=== PATIENT | female | born 1945 | race Caucasian/White ===

== ENCOUNTER 2016-08-03 16:27 | Inpatient (IN) | payer MEDICARE, OTHER ==
[2016-08-03] MEDS ORDERED: NS 1,000 ML IV ONE (16:37)
[2016-08-03] MEDS ORDERED: DILTIAZEM 25 MG/5 ML VIAL IV ONE (16:37)
[2016-08-03 17:01] LABS: AUTOMATED BASOPHIL 1.1 % (0-2); AUTOMATED EOSINOPHIL 1.6 % (0-5); AUTOMATED MONOCYTE 6.2 % (3-10); AUTOMATED NEUTROPHIL 60.1 % (45-76); MPV 8.2 fL (7.4-10.4)
[2016-08-03 17:13] LABS: BLOOD UREA NITROGEN 21 MG/DL (7-17); CALCIUM 9.7 MG/DL (8.4-10.2); CALCULATED OSMOLALITY 281 MOs/Kg (270-290); CHLORIDE 106 mEq/L (98-107); CPK TOTAL WITH POSSIBLE MB 68 IU/L (30-134); GLUCOSE 123 mg/dL (70-99); PARTIAL THROMB. TIME 24.3 SEC (22-35); SODIUM LEVEL 144 mEq/L (137-146); TOTAL PROTEIN 7.3 G/DL (6.3-8.2)
--- NOTE | 2016-08-03 17:28 | DIRPT ---
CLINICAL DATA: Chest pain, neck and jaw pain EXAM: CHEST 2 VIEW COMPARISON: 08/06/2015 FINDINGS: The heart size and mediastinal contours are within normal limits. Both lungs are clear. The visualized skeletal structures are unremarkable. IMPRESSION: No active cardiopulmonary disease. Electronically Signed By: Funmilayo Barron On: 08/03/2016 17:26
[2016-08-03 17:31] LABS: ABG Draw Site Left Radial; ABG Draw Tech SPEMA; ALLEN'S TEST PASS; BEb 5.4 (+/- 2); TCO2 30.2 MMOL/L (23-27)
--- NOTE | 2016-08-03 17:59 | EDPRACDOC ---
- History of Present Illness HPI: PT PRESENTS WITH SUBSTERNAL CHEST PAIN THAT BEGAN APPROX ONE HOUR [employer]. STATES THE PAIN IS A HEAVINESS AND RADIATES TO THE NECK. PT HAS PMH OF CARDIAC STENT PLACEMENT APPROX 10 YEARS AGO. DENIES NAUSEA OR VOMITING. Chest Pain Location: Reports: Substernal Pain Radiation: Reports: Neck, Jaw Symptoms Occur: Reports: Gradually Cardiac Risk Factors: Reports: Hyperlipidemia, Hypertension Cardiac History of: Reports: Cardiac Cath, Stress Test, Stent Medications within 24 Hours: Reports: Aspirin Prehospital Care: Reports: None Pain Came On: Reports: Gradually Pain Status: Present Now Pain Description: Reports: Pressure, Heavy, Tightness Pain Severity: Moderate Pain Worsens With: Reports: Nothing Pain Improves With: Reports: Nothing Associated Signs and Symptoms: Reports: None <Nakita Denis - Last Filed: 08/03/16 18:10> - General Information Information Source: Patient, Family Mode of Arrival: Car - History of Present Illness Onset: 1hr <Tu Nj - Last Filed: 08/03/16 19:39> - General Information Chief Complaint: Chest Pain Stated Complaint: CHEST PAIN Time Seen by Provider: 08/03/16 16:36 Home Medications: Home Medications Aspirin [Aspirin, Chewable] 81 mg PO DAILY 10/24/12 Atenolol [Tenormin] 25 mg PO DAILY 10/24/12 Calcium Carb/Vit D3/Minerals [Calcium 600 + D Tablet] 1 tab PO BID 10/24/12 Levothyroxine Sodium [Levoxyl] 137 mcg PO DAILY 10/24/12 Multivitamin [Multiple Vitamins] 1 tab PO DAILY 10/24/12 Niacin 500 mg PO BIDWM 10/24/12 Nitroglycerin [Nitrostat] 0.4 mg SL DAILY PRN 10/24/12 [place]-3 Fatty Acids/Fish Oil [Fish Oil 1,000 mg Softgel] 2 cap PO BID 10/24/12 Omeprazole 40 mg PO DAILY 10/24/12 Rosuvastatin Calcium [Crestor] 10 mg PO QHS 10/24/12 Sertraline HCl [Zoloft] 200 mg PO DAILY 10/24/12 Buspirone HCl 15 mg PO DAILY 03/11/16 Valsartan/Hydrochlorothiazide [Valsartan-Hctz 80-12.5 mg Tab] 1 tab PO DAILY Allergies/Adverse Reactions: Allergies Allergy/AdvReac Type Severity Reaction Status Date / Time No Known Allergies Allergy Verified 08/03/16 16:42 ED Past Medical History - History Reviewed Yes Nurses notes reviewed and agree except as marked <Nakita Denis - Last Filed: 08/03/16 18:10> - Patient Medical History Neurological History: Reports: Migraine Cardiac History: Reports: Coronary Artery Disease, Hypertension, Cardiac Catheterization (2 stents placed approximately 5 years ago in [place]), Hypercholesterolemia Respiratory History: Reports: Asthma GI/ History: Reports: Urinary Tract Infection Musculoskeletal History: Reports: Arthritis Psychological History: Reports: Depression, Anxiety. Denies: Substance Use Disorder Systemic History: Reports: Hypothyroidism Surgical History: Reports: Appendectomy, Cardiac Catheterization (2 stents placed approximately 5 years ago in [place]), Tonsillectomy/Adnoidectomy - Family Medical History Reports: Hypertension (daddy, brother), Diabetes (mother), Cancer (mother, brother), Cardiac Disorders (Father and Mother) - Social Medical History Smoking Status: Former smoker Social History: Denies: Other Substance Use <Tu Nj - Last Filed: 08/03/16 19:39> EDM Review of Systems - Review of Systems ROS Negative Except as Marked: Yes All systems reviewed and were negative except as marked <Nakita Denis - Last Filed: 08/03/16 18:10> - Physical Exam Constitutional: Alert Oriented to: Time, Person, Place Last recorded Vital Signs: Last Vital Signs Temp 98.2 F 08/03/16 16:36 Pulse 54 L 08/03/16 17:49 Resp 20 08/03/16 17:49 BP 148/74 08/03/16 17:49 Pulse Ox 94 08/03/16 17:49 Oxygen Pulse Oxygen Saturation 94 O2 Device Nasal Cannula Oxygen Flow Rate 2 Fraction of Inspired Oxygen ( FIO2) - HEENT Head: Normal ( normocephalic) Eye Exam: Normal (PERRL, EOMI, Sclera white) Oropharynx: Normal (Pharynx:Moist without exudate,Gums-no swelling) Nose: No Symptoms Reported (septum midline) Neck: Normal (FROM, trachea at midline) - Respiratory/Cardiovascular Respiratory: Normal - CTA (BBS clear to auscultation without adventitious sounds ) Cardiovascular: Tachycardia, Irregular - GI Auscultation: Normal (NABS) Palpation: Normal (Soft,No rebound or guarding, non distended) Tenderness: Non tender Portillo's Sign: Negative Rectal Exam: Deferred - Musculoskeletal Back: Normal (Non-Tender) Extremities: Normal (Normal tone, Pulses 2+ No cyanosis or edema, FROM) - Integumentary Skin: Normal, Warm, Dry Lymphatics: Normal (no adenopathy) - Neurologic Memory Impaired: Normal Motor Function: Normal (Normal tone, Pulses 2+ No cyanosis or edema, FROM) Cranial Nerve: Normal (CN II-X11 intact sensation, strength 5/5) Cerebellar: Normal Mood Description: Normal Perception: Normal <Nakita Denis - Last Filed: 08/03/16 18:10> - Physical Exam Last recorded Vital Signs: Last Vital Signs Temp 98.2 F 08/03/16 16:36 Pulse 54 L 08/03/16 17:49 Resp 20 08/03/16 17:49 BP 148/74 08/03/16 17:49 Pulse Ox 94 08/03/16 17:49 Oxygen Pulse Oxygen Saturation 94 O2 Device Nasal Cannula Oxygen Flow Rate 2 Fraction of Inspired Oxygen ( FIO2) <Tu Nj - Last Filed: 08/03/16 19:39> ED Chest Pain Exam - Respiratory/Cardiovascular Respiratory: Normal - CTA Cardiovascular/Chest: Tachycardia, Irregular Radial Pulse: Normal Femoral Pulse: Normal Pedal Pulse: Normal Carotid Arteries: Normal Edema: negative: 1+, 2+, 3+, 4+, 5, 6 Chest Palpation: Normal <Nakita Denis - Last Filed: 08/03/16 18:10> - Differential Diagnosis Angina, Other - Action Patient received Aspirin within last 24 hours?: Yes ASA given in the ED: No Patient received Beta Mary Jo within last 24hrs: No - Results All Results Reviewed and Normal except as Highlighted below: Yes 08/03/16 16:47 08/03/16 16:47 WBC 9.1 xk/uL (3.8-10.8) 08/03/16 16:47 RBC 4.75 xM/uL (4.20-5.40) 08/03/16 16:47 Hgb 13.0 g/dL (12.0-16.0) 08/03/16 16:47 Hct 38.9 % (36-47) 08/03/16 16:47 MCV 82 fL (81-99) 08/03/16 16:47 MCH 27.4 pg (27-32) 08/03/16 16:47 MCHC 33.5 g/dl (33-36) 08/03/16 16:47 RDW 14.6 % (11.5-14.5) H 08/03/16 16:47 Plt Count 174 xk/uL (130-400) 08/03/16 16:47 MPV 8.2 fL (7.4-10.4) 08/03/16 16:47 Neut % (Auto) 60.1 % (45-76) 08/03/16 16:47 Lymph % (Auto) 31.0 % (17-44) 08/03/16 16:47 [place] % (Auto) 6.2 % (3-10) 08/03/16 16:47 Eos % (Auto) 1.6 % (0-5) 08/03/16 16:47 Baso % (Auto) 1.1 % (0-2) 08/03/16 16:47 Absolute Neuts (auto) 5.46 xk/uL (1.7-8.2) 08/03/16 16:47 Absolute Lymphs (auto) 2.82 xk/uL (0.65-4.75) 08/03/16 16:47 PT 10.0 SEC (9.2-11.2) 08/03/16 16:47 INR 1.0 08/03/16 16:47 APTT 24.3 SEC (22-35) 08/03/16 16:47 Puncture Site Left radial 08/03/16 17:30 pH 7.490 pH UNITS (7.35-7.45) H 08/03/16 17:30 pCO2 38.0 mmHg (35-45) 08/03/16 17:30 pO2 54.0 mmHg (80-100) L 08/03/16 17:30 HCO3 29.0 MMOL/L (22-26) H 08/03/16 17:30 Total CO2 30.2 MMOL/L (23-27) H 08/03/16 17:30 Base Excess 5.4 (+/- 2) H 08/03/16 17:30 FiO2 % 21 08/03/16 17:30 Specimen Drawn By Spema 08/03/16 17:30 Sodium 144 mEq/L (137-146) 08/03/16 16:47 Potassium 3.5 mEq/L (3.5-5.1) 08/03/16 16:47 Chloride 106 mEq/L (98-107) 08/03/16 16:47 Carbon Dioxide 28 mMOL/L (22-33) 08/03/16 16:47 Anion Gap 14 mEq/L (8-16) 08/03/16 16:47 BUN 21 MG/DL (7-17) H 08/03/16 16:47 Creatinine 0.80 MG/DL (0.52-1.04) 08/03/16 16:47 Estimated GFR (MDRD) > 60 mL/min (>=60) 08/03/16 16:47 Glucose 123 mg/dL (70-99) H 08/03/16 16:47 Calculated Osmolality 281 MOs/Kg (270-290) 08/03/16 16:47 Calcium 9.7 MG/DL (8.4-10.2) 08/03/16 16:47 Total Bilirubin 0.3 MG/DL (0.2-1.3) 08/03/16 16:47 AST 25 IU/L (14-36) 08/03/16 16:47 ALT 28 IU/L (9-52) 08/03/16 16:47 Alkaline Phosphatase 59 IU/L (55-165) 08/03/16 16:47 Creatine Kinase 68 IU/L (30-134) 08/03/16 16:47 Troponin I < 0.01 ng/mL (<.04) 08/03/16 16:47 Czm-Y-Szrwnpirdgw Pept 2560 pg/mL (0-900) H 08/03/16 16:47 Total Protein 7.3 G/DL (6.3-8.2) 08/03/16 16:47 Albumin 4.2 G/DL (3.5-5.0) 08/03/16 16:47 Lab Results 08/03/16 08/03/16 08/03/16 17:30 16:47 16:47 WBC 9.1 RBC 4.75 Hgb 13.0 Hct 38.9 MCV 82 MCH 27.4 MCHC 33.5 RDW 14.6 H Plt Count 174 MPV 8.2 Neut % (Auto) 60.1 Lymph % (Auto) 31.0 [place] % (Auto) 6.2 Eos % (Auto) 1.6 Baso % (Auto) 1.1 Absolute Neuts (auto) 5.46 Absolute Lymphs (auto) 2.82 PT 10.0 INR 1.0 APTT 24.3 Puncture Site Left radial pH 7.490 H pCO2 38.0 pO2 54.0 L HCO3 29.0 H Total CO2 30.2 H Base Excess 5.4 H FiO2 % 21 Specimen Drawn By Spema Sodium Potassium Chloride Carbon Dioxide Anion Gap BUN Creatinine Estimated GFR (MDRD) Glucose Calculated Osmolality Calcium Total Bilirubin AST ALT Alkaline Phosphatase Creatine Kinase Troponin I Axp-A-Uetjrevvtqo Pept Total Protein Albumin 08/03/16 16:47 WBC RBC Hgb Hct MCV MCH MCHC RDW Plt Count MPV Neut % (Auto) Lymph % (Auto) [place] % (Auto) Eos % (Auto) Baso % (Auto) Absolute Neuts (auto) Absolute Lymphs (auto) PT INR APTT Puncture Site pH pCO2 pO2 HCO3 Total CO2 Base Excess FiO2 % Specimen Drawn By Sodium 144 Potassium 3.5 Chloride 106 Carbon Dioxide 28 Anion Gap 14 BUN 21 H Creatinine 0.80 Estimated GFR (MDRD) > 60 Glucose 123 H Calculated Osmolality 281 Calcium 9.7 Total Bilirubin 0.3 AST 25 ALT 28 Alkaline Phosphatase 59 Creatine Kinase 68 Troponin I < 0.01 Blo-C-Pyjqhygidij Pept 2560 H Total Protein 7.3 Albumin 4.2 Laboratory Results - last 24 hr 08/03/16 08/03/16 08/03/16 16:47 16:47 16:47 WBC 9.1 RBC 4.75 Hgb 13.0 Hct 38.9 MCV 82 MCH 27.4 MCHC 33.5 RDW 14.6 H Plt Count 174 MPV 8.2 Neut % (Auto) 60.1 Lymph % (Auto) 31.0 [place] % (Auto) 6.2 Eos % (Auto) 1.6 Baso % (Auto) 1.1 Absolute Neuts (auto) 5.46 Absolute Lymphs (auto) 2.82 PT 10.0 INR 1.0 APTT 24.3 Puncture Site pH pCO2 pO2 HCO3 Total CO2 Base Excess FiO2 % Specimen Drawn By Sodium 144 Potassium 3.5 Chloride 106 Carbon Dioxide 28 Anion Gap 14 BUN 21 H Creatinine 0.80 Estimated GFR (MDRD) > 60 Glucose 123 H Calculated Osmolality 281 Calcium 9.7 Total Bilirubin 0.3 AST 25 ALT 28 Alkaline Phosphatase 59 Creatine Kinase 68 Troponin I < 0.01 Dur-N-Qmfmntfztum Pept 2560 H Total Protein 7.3 Albumin 4.2 08/03/16 17:30 WBC RBC Hgb Hct MCV MCH MCHC RDW Plt Count MPV Neut % (Auto) Lymph % (Auto) [place] % (Auto) Eos % (Auto) Baso % (Auto) Absolute Neuts (auto) Absolute Lymphs (auto) PT INR APTT Puncture Site Left radial pH 7.490 H pCO2 38.0 pO2 54.0 L HCO3 29.0 H Total CO2 30.2 H Base Excess 5.4 H FiO2 % 21 Specimen Drawn By Spema Sodium Potassium Chloride Carbon Dioxide Anion Gap BUN Creatinine Estimated GFR (MDRD) Glucose Calculated Osmolality Calcium Total Bilirubin AST ALT Alkaline Phosphatase Creatine Kinase Troponin I Uzm-H-Egapfktvaix Pept Total Protein Albumin Laboratory Results 08/03/16 16:47 08/03/16 16:47 - EKG EKG #1 EKG Time: 16:35 -: Yes EKG interpreted by me Rate: bpm: 118 [place]: Normal Rhythm: Afib (WITH RVR) Block: None Hypertrophy: None ST: Normal Comparison: 09/01/14 (NSR) EKG #2 EKG Time: 18:02 -: Yes EKG interpreted by me Rate: bpm: 51 [place]: Normal Rhythm: SB Block: None Hypertrophy: None ST: Nonsp Comments: AFTER CARDIAZEM <Nakita Denis W - Last Filed: 08/03/16 18:10> - Re-evaluation Re-evaluation 1 Re-evaluation Time: 17:57 i saw and examined the patient and confirmed details of the h/p.pt denies the presence of cp at this time. afib was present upon first eval, but now, HR is in the 50's and it appears to be sinus. no chest tenderness;no abd tenderness. pt has hx of cad with hx stents 8-10 years ago.after dx w/u, anticipate hospitalist c/s for admission. Re-evaluation 2 Re-evaluation Time: 19:34 pt denies pain, has funny feeling in her head and mild blurry vision - Results 08/03/16 16:47 08/03/16 16:47 WBC 9.1 xk/uL (3.8-10.8) 08/03/16 16:47 RBC 4.75 xM/uL (4.20-5.40) 08/03/16 16:47 Hgb 13.0 g/dL (12.0-16.0) 08/03/16 16:47 Hct 38.9 % (36-47) 08/03/16 16:47 MCV 82 fL (81-99) 08/03/16 16:47 MCH 27.4 pg (27-32) 08/03/16 16:47 MCHC 33.5 g/dl (33-36) 08/03/16 16:47 RDW 14.6 % (11.5-14.5) H 08/03/16 16:47 Plt Count 174 xk/uL (130-400) 08/03/16 16:47 MPV 8.2 fL (7.4-10.4) 08/03/16 16:47 Neut % (Auto) 60.1 % (45-76) 08/03/16 16:47 Lymph % (Auto) 31.0 % (17-44) 08/03/16 16:47 [place] % (Auto) 6.2 % (3-10) 08/03/16 16:47 Eos % (Auto) 1.6 % (0-5) 08/03/16 16:47 Baso % (Auto) 1.1 % (0-2) 08/03/16 16:47 Absolute Neuts (auto) 5.46 xk/uL (1.7-8.2) 08/03/16 16:47 Absolute Lymphs (auto) 2.82 xk/uL (0.65-4.75) 08/03/16 16:47 PT 10.0 SEC (9.2-11.2) 08/03/16 16:47 INR 1.0 08/03/16 16:47 APTT 24.3 SEC (22-35) 08/03/16 16:47 Puncture Site Left radial 08/03/16 17:30 pH 7.490 pH UNITS (7.35-7.45) H 08/03/16 17:30 pCO2 38.0 mmHg (35-45) 08/03/16 17:30 pO2 54.0 mmHg (80-100) L 08/03/16 17:30 HCO3 29.0 MMOL/L (22-26) H 08/03/16 17:30 Total CO2 30.2 MMOL/L (23-27) H 08/03/16 17:30 Base Excess 5.4 (+/- 2) H 08/03/16 17:30 FiO2 % 21 08/03/16 17:30 Specimen Drawn By Spema 08/03/16 17:30 Sodium 144 mEq/L (137-146) 08/03/16 16:47 Potassium 3.5 mEq/L (3.5-5.1) 08/03/16 16:47 Chloride 106 mEq/L (98-107) 08/03/16 16:47 Carbon Dioxide 28 mMOL/L (22-33) 08/03/16 16:47 Anion Gap 14 mEq/L (8-16) 08/03/16 16:47 BUN 21 MG/DL (7-17) H 08/03/16 16:47 Creatinine 0.80 MG/DL (0.52-1.04) 08/03/16 16:47 Estimated GFR (MDRD) > 60 mL/min (>=60) 08/03/16 16:47 Glucose 123 mg/dL (70-99) H 08/03/16 16:47 Calculated Osmolality 281 MOs/Kg (270-290) 08/03/16 16:47 Calcium 9.7 MG/DL (8.4-10.2) 08/03/16 16:47 Total Bilirubin 0.3 MG/DL (0.2-1.3) 08/03/16 16:47 AST 25 IU/L (14-36) 08/03/16 16:47 ALT 28 IU/L (9-52) 08/03/16 16:47 Alkaline Phosphatase 59 IU/L (55-165) 08/03/16 16:47 Creatine Kinase 68 IU/L (30-134) 08/03/16 16:47 Troponin I < 0.01 ng/mL (<.04) 08/03/16 16:47 Yhu-Y-Lnywshixohs Pept 2560 pg/mL (0-900) H 08/03/16 16:47 Total Protein 7.3 G/DL (6.3-8.2) 08/03/16 16:47 Albumin 4.2 G/DL (3.5-5.0) 08/03/16 16:47 Lab Results 08/03/16 08/03/16 08/03/16 17:30 16:47 16:47 WBC 9.1 RBC 4.75 Hgb 13.0 Hct 38.9 MCV 82 MCH 27.4 MCHC 33.5 RDW 14.6 H Plt Count 174 MPV 8.2 Neut % (Auto) 60.1 Lymph % (Auto) 31.0 [place] % (Auto) 6.2 Eos % (Auto) 1.6 Baso % (Auto) 1.1 Absolute Neuts (auto) 5.46 Absolute Lymphs (auto) 2.82 PT 10.0 INR 1.0 APTT 24.3 Puncture Site Left radial pH 7.490 H pCO2 38.0 pO2 54.0 L HCO3 29.0 H Total CO2 30.2 H Base Excess 5.4 H FiO2 % 21 Specimen Drawn By Spema Sodium Potassium Chloride Carbon Dioxide Anion Gap BUN Creatinine Estimated GFR (MDRD) Glucose Calculated Osmolality Calcium Total Bilirubin AST ALT Alkaline Phosphatase Creatine Kinase Troponin I Zoa-T-Kmmdkctiteb Pept Total Protein Albumin 08/03/16 16:47 WBC RBC Hgb Hct MCV MCH MCHC RDW Plt Count MPV Neut % (Auto) Lymph % (Auto) [place] % (Auto) Eos % (Auto) Baso % (Auto) Absolute Neuts (auto) Absolute Lymphs (auto) PT INR APTT Puncture Site pH pCO2 pO2 HCO3 Total CO2 Base Excess FiO2 % Specimen Drawn By Sodium 144 Potassium 3.5 Chloride 106 Carbon Dioxide 28 Anion Gap 14 BUN 21 H Creatinine 0.80 Estimated GFR (MDRD) > 60 Glucose 123 H Calculated Osmolality 281 Calcium 9.7 Total Bilirubin 0.3 AST 25 ALT 28 Alkaline Phosphatase 59 Creatine Kinase 68 Troponin I < 0.01 Xmc-E-Qlcjafqmprp Pept 2560 H Total Protein 7.3 Albumin 4.2 Laboratory Results - last 24 hr 08/03/16 08/03/16 08/03/16 16:47 16:47 16:47 WBC 9.1 RBC 4.75 Hgb 13.0 Hct 38.9 MCV 82 MCH 27.4 MCHC 33.5 RDW 14.6 H Plt Count 174 MPV 8.2 Neut % (Auto) 60.1 Lymph % (Auto) 31.0 [place] % (Auto) 6.2 Eos % (Auto) 1.6 Baso % (Auto) 1.1 Absolute Neuts (auto) 5.46 Absolute Lymphs (auto) 2.82 PT 10.0 INR 1.0 APTT 24.3 Puncture Site pH pCO2 pO2 HCO3 Total CO2 Base Excess FiO2 % Specimen Drawn By Sodium 144 Potassium 3.5 Chloride 106 Carbon Dioxide 28 Anion Gap 14 BUN 21 H Creatinine 0.80 Estimated GFR (MDRD) > 60 Glucose 123 H Calculated Osmolality 281 Calcium 9.7 Total Bilirubin 0.3 AST 25 ALT 28 Alkaline Phosphatase 59 Creatine Kinase 68 Troponin I < 0.01 Skp-N-Bdkcljzrbrf Pept 2560 H Total Protein 7.3 Albumin 4.2 08/03/16 17:30 WBC RBC Hgb Hct MCV MCH MCHC RDW Plt Count MPV Neut % (Auto) Lymph % (Auto) [place] % (Auto) Eos % (Auto) Baso % (Auto) Absolute Neuts (auto) Absolute Lymphs (auto) PT INR APTT Puncture Site Left radial pH 7.490 H pCO2 38.0 pO2 54.0 L HCO3 29.0 H Total CO2 30.2 H Base Excess 5.4 H FiO2 % 21 Specimen Drawn By Spema Sodium Potassium Chloride Carbon Dioxide Anion Gap BUN Creatinine Estimated GFR (MDRD) Glucose Calculated Osmolality Calcium Total Bilirubin AST ALT Alkaline Phosphatase Creatine Kinase Troponin I Krn-V-Ierwvqzlwzc Pept Total Protein Albumin Laboratory Results 08/03/16 16:47 08/03/16 16:47 <Tu Nj - Last Filed: 08/03/16 19:39> - Departure Disposition: Admit IP To This Hospital Education/Counseling Given To: Patient Education/Counseling Given Regarding: Diagnosis, Treatment, Prognosis, Follow Up <Nakita Denis - Last Filed: 08/03/16 18:10> - Departure Yes I personally saw and evaluated the patient. Decision to Admit Time: 18:30 Decision to admit date: 08/03/16 Decision to admit: from ED - Physician Consulted Hospitalist Time Called: 19:36 Provider Called: Matt Melendez Consult Reason: to discuss pt and ask for c/s <Tu Nj - Last Filed: 08/03/16 19:39> - Departure Condition: Stable Final Diagnosis: New onset a-fib Instructions: A-fib (Atrial Fibrillation) (ED), Chest Pain (ED) Referrals: Deshaun Pino MD [Staff Physician] - One Week Prescriptions: No Action Omeprazole 40 mg PO DAILY Nitroglycerin [Nitrostat] 0.4 mg SL DAILY PRN PRN Reason: Chest Pain Or Discomfort Niacin 500 mg PO BIDWM Sertraline HCl [Zoloft] 200 mg PO DAILY [place]-3 Fatty Acids/Fish Oil [Fish Oil 1,000 mg Softgel] 2 cap PO BID Multivitamin [Multiple Vitamins] 1 tab PO DAILY Levothyroxine Sodium [Levoxyl] 137 mcg PO DAILY Rosuvastatin Calcium [Crestor] 10 mg PO QHS Calcium Carb/Vit D3/Minerals [Calcium 600 + D Tablet] 1 tab PO BID Atenolol [Tenormin] 25 mg PO DAILY Aspirin [Aspirin, Chewable] 81 mg PO DAILY Valsartan/Hydrochlorothiazide [Valsartan-Hctz 80-12.5 mg Tab] 1 tab PO DAILY Buspirone HCl 15 mg PO DAILY
[2016-08-03] MEDS ORDERED: Pharmacy Review for Metformin - IV Contrast Given SCH (18:00)
[2016-08-03 18:27] LABS: LEUKOCYTES/URINE 1+ (NEGATIVE); NITRITE/URINE NEG (NEGATIVE); RBC/URINE 0-2 (0-5); URINE OCCULT BLOOD NEG (NEG/TRACE)
--- NOTE | 2016-08-03 19:18 | DIRPT ---
CLINICAL DATA: 71-year-old female with hypoxia and chest pain and hypoxia. EXAM: CT ANGIOGRAPHY CHEST WITH CONTRAST TECHNIQUE: Multidetector CT imaging of the chest was performed using the standard protocol during bolus administration of intravenous contrast. Multiplanar CT image reconstructions and MIPs were obtained to evaluate the vascular anatomy. CONTRAST: 80 cc Isovue 370 COMPARISON: Chest radiograph dated 08/03/2016 FINDINGS: Evaluation of this exam is limited due to respiratory motion artifact. There is a 3.5 x 2.2 cm hypodense lesion in the posterior left hilum between the descending thoracic aorta and left lower lobe pulmonary artery which may represent an impacted mucus within the left upper lobe bronchus. An enlarged lymph node or hilar mass are not excluded. These lesion appears to cause mass effect and splaying of the small vessels adjacent to it. There is a small focal area of consolidative change in the superior segment of the left lower lobe superior to this lesion. There are bibasilar dependent atelectatic changes of the lungs. The lungs are otherwise clear. There is no pleural effusion or pneumothorax. The central airways are patent. There is atherosclerotic calcification of the thoracic aorta. There is no CT evidence of pulmonary embolism. Right hilar adenopathy measuring 1.5 cm in short axis. Right paratracheal lymph node measures 1.5 cm. There is a 1.2 cm nodule in the anterior mediastinum, likely a lymph node. The esophagus is grossly unremarkable. Mild cardiomegaly. Calcified mitral annulus as well as coronary vascular calcifications noted. There is a slightly dilated cord-like structure arising from the left atrial appendage which may be part of the left atrial anatomy or represent an aneurysmal vessel. Further evaluation with echocardiogram or gated cardiac CT is recommended. There is no axillary adenopathy. The chest wall soft tissues appear unremarkable. There is mild degenerative changes of the spine. No acute fracture. Cholecystectomy. Small scattered splenic calcified granuloma. The visualized upper abdomen is otherwise unremarkable. Review of the MIP images confirms the above findings. IMPRESSION: No CT evidence of pulmonary embolism. A 3.5 x 2.2 cm hypo attenuating lesion in the posterior aspect of the left hilum possibly representing an impacted mucus material with associated focal postobstructive atelectasis of the adjacent lung. An enlarged lymph node, or a hilar mass are not excluded. Bronchoscopy may provide better evaluation. Pulmonary consult is advised. Mild right hilar adenopathy as well as top-normal mediastinal lymph nodes. Cord like structure arising from the left atrial appendage. Further evaluation with echocardiogram or gated cardiac CT is recommended. Electronically Signed By: Reyes Tse M.D. On: 08/03/2016 19:16
--- NOTE | 2016-08-03 19:54 | HISTPHYS ---
- Chief Complaint chest pain, jaw/neck/head pain - History of Present Illness PRIMARY CARE PROVIDER: Dr. Rufino Metz LOW RAW SUGAR CUTTER: Dr. Pino HPI: The patient is a 71 yo woman with coronary artery disease, 2 stents placed approx 2007, hypertension, hyperlipidemia, family history of early heart disease , who presents with chest, neck, and head pain. She started having pain in her gums and mouth and head. The pain was all around the bottom of her jaw bilaterally. Then she had pain in her chest. Her blood pressure was nigh. Onset: 3:30 today. Duration: intermittent. Location: upper left chest. Radiation: bilateral neck. Character: Pressure. 12/03. Alleviated by: Nothing. Exacerbated by: Nothing. Associated Symptoms: Mild shortness of breath. No new diaphoresis but has it all the time. Palpitations and heart racing; heart rate was fast then slow. Had mild cough intermittently x 1 month; received an inhaler for it but it never really resolved. No wheezing. No fever or chills. Headache: entire head. No focal weakness or numbness. No abdominal pain or nausea. Treatments: none at home except usual medications. Was treated for a respiratory infection last month. She still reports coughing. In the emergency department, the patient was found to be tachycardic with a heart rate in the 130s an in atrial fibrillation. For the atrial fibrillation with rapid ventricular response, she was given diltiazem 20 mg IV x1. Shortly after that, she converted to sinus rhythm and developed mild bradycardia, with heart rate in the low 50s down to 49. - Medical History Cardiac History: Reports: Coronary Artery Disease (2 stents), Hypertension, Cardiac Catheterization (2 stents placed approximately 2007 in [place]), Hypercholesterolemia Respiratory History: Reports: Asthma (Mild intermittent. Does not wear oxygen at home. Denies sleep apnea.) GI/ History: Reports: Urinary Tract Infection Musculoskeletal History: Reports: Arthritis Systemic History: Reports: Hypothyroidism Psychological History: Reports: Depression, Anxiety. Denies: Substance Use Disorder - Surgical History Reports: Appendectomy, Cardiac Catheterization (2 stents placed approximately 5 years ago in [place]), Tonsillectomy/Adnoidectomy - Medictions/Allergies Allergies No Known Allergies Allergy (Verified 08/03/16 16:42) Current Medication List: Reviewed Home Medications Aspirin [Aspirin, Chewable] 81 mg PO DAILY 10/24/12 Atenolol [Tenormin] 25 mg PO DAILY 10/24/12 Calcium Carb/Vit D3/Minerals [Calcium 600 + D Tablet] 1 tab PO BID 10/24/12 Levothyroxine Sodium [Levoxyl] 137 mcg PO DAILY 10/24/12 Multivitamin [Multiple Vitamins] 1 tab PO DAILY 10/24/12 Niacin 500 mg PO BIDWM 10/24/12 Nitroglycerin [Nitrostat] 0.4 mg SL DAILY PRN 10/24/12 [place]-3 Fatty Acids/Fish Oil [Fish Oil 1,000 mg Softgel] 2 cap PO BID 10/24/12 Omeprazole 40 mg PO DAILY 10/24/12 Rosuvastatin Calcium [Crestor] 10 mg PO QHS 10/24/12 Sertraline HCl [Zoloft] 200 mg PO DAILY 10/24/12 Buspirone HCl 15 mg PO DAILY 03/11/16 Valsartan/Hydrochlorothiazide [Valsartan-Hctz 80-12.5 mg Tab] 1 tab PO DAILY - Family History Reports: Hypertension (Father, brother), Diabetes (Mother), Cancer (Mother, brother), Cardiac Disorders (Father: early [place] and at 55yo. Mother: heart disease.) - Social History Lives: with Spouse Smoking Status: Former smoker (Quit 30 or more years ago. Previously 1.5 to 2 ppd. Started 14yo.) Social History: Denies: Alcohol Use, Other Substance Use - Review of Systems GENERAL: No Fever, chills. Chronic diaphoresis. Positive for fatigue/malaise. HEENT: No ear pain or discharge. No nasal discharge or bleeding. No throat pain or swelling. No eye pain or eye redness. RESPIRATORY: Cough, shortness of breath. No wheezing. CARDIOVASCULAR: Chest pain and palpitations. GI: No abdominal pain, nausea, vomiting, diarrhea, constipation, or bloody stool. NEUROLOGICAL: Headache. No focal weakness. INTEGUMENT: no rashes, itching, or lesions. LYMPHATIC SYSTEM: no lymph node swelling or pain. MUSCULOSKELETAL: no new pain or joint swelling. GENITOURINARY: No dysuria or hematuria. ENDOCRINE: No polyuria or polydipsia. HEME: No chronic anemia, bleeding, or easy bruising. - Physical Exam Vital Signs: Initial Vitals Temperature 98.2 F 08/03/16 16:36 Pulse Rate 132 H 08/03/16 16:36 Respiratory Rate 18 08/03/16 16:36 Blood Pressure 118/86 08/03/16 16:36 Pulse Oxygen Saturation 93 08/03/16 16:36 Vital Signs - 24 hr 08/03/16 08/03/16 08/03/16 16:36 17:05 17:30 Temperature 98.2 F Pulse Rate 132 H 122 H 68 Respiratory 18 18 Rate Blood Pressure 118/86 122/86 120/70 Pulse Oxygen 93 91 Saturation 08/03/16 08/03/16 08/03/16 17:49 18:05 18:35 Temperature Pulse Rate 54 L 66 50 L Respiratory 20 18 18 Rate Blood Pressure 148/74 148/74 124/93 Pulse Oxygen 94 92 96 Saturation Weight: 86.1 kg Height: 5 feet 5 inches BMI: 31.6 - Other Exam Other Exam Findings: GENERAL: Ill-appearing, well nourished, in mild acute distress. HEENT: Normocephalic, atraumatic; pupils equal and round. Nares patent, without discharge or bleeding. No oropharyngeal lesions or erythema. Mucous membranes are dry. NECK: is supple, no masses, trachea midline. RESPIRATORY: Clear to auscultation bilaterally. Chest wall movements are symmetric. No use of accessory muscles to breathe. Occasional wheezing. No rales, rhonchi. Intermittent coughing noted. CARDIOVASCULAR: Normal S1, S2. Murmur 2/6 systolic. No rubs, or gallops. PMI non -displaced. Carotids: no carotid bruits. Bradycardia. DP pulses 2+ bilaterally. GI: soft, nontender, non-distended, normal active bowel sounds. No hepatosplenomegaly. INTEGUMENT: Clean, dry, and intact. No rashes. No lesions. MUSCULOSKELETAL: Moving all extremities. No cyanosis. No clubbing. Edema: Trace lower extremity edema bilaterally. NEUROLOGICAL: Cranial nerves 2-12 grossly intact. Motor 4/5 throughout. Reflexes : 2+ bilaterally. Babinski: toes downgoing bilaterally. Intact Finger to nose. Sensory grossly intact to light touch. Intact rapid alternating movements bilaterally. No pronator drift. PSYCHIATRIC: Fully oriented. Normal and appropriate affect. LYMPHATIC: No cervical lymphadenopathy. No supraclavicular lymphadenopathy. - Lab Results Laboratory Results - last 24 hr 08/03/16 08/03/16 08/03/16 16:47 16:47 16:47 WBC 9.1 RBC 4.75 Hgb 13.0 Hct 38.9 MCV 82 MCH 27.4 MCHC 33.5 RDW 14.6 H Plt Count 174 MPV 8.2 Neut % (Auto) 60.1 Lymph % (Auto) 31.0 [place] % (Auto) 6.2 Eos % (Auto) 1.6 Baso % (Auto) 1.1 Absolute Neuts (auto) 5.46 Absolute Lymphs (auto) 2.82 PT 10.0 INR 1.0 APTT 24.3 Puncture Site pH pCO2 pO2 HCO3 Total CO2 Base Excess FiO2 % Specimen Drawn By Sodium 144 Potassium 3.5 Chloride 106 Carbon Dioxide 28 Anion Gap 14 BUN 21 H Creatinine 0.80 Estimated GFR (MDRD) > 60 Glucose 123 H Calculated Osmolality 281 Calcium 9.7 Total Bilirubin 0.3 AST 25 ALT 28 Alkaline Phosphatase 59 Creatine Kinase 68 Troponin I < 0.01 Zot-J-Fatwmjumaux Pept 2560 H Total Protein 7.3 Albumin 4.2 Urine Color Urine Clarity Urine pH Ur Specific Arjay Urine Protein Urine Glucose (UA) Urine Ketones Urine Occult Blood Urine Nitrite Urine Bilirubin Urine Urobilinogen Ur Leukocyte Esterase Urine RBC Urine WBC Ur Epithelial Cells Hyaline Casts Urine Mucus 08/03/16 08/03/16 17:30 17:49 WBC RBC Hgb Hct MCV MCH MCHC RDW Plt Count MPV Neut % (Auto) Lymph % (Auto) [place] % (Auto) Eos % (Auto) Baso % (Auto) Absolute Neuts (auto) Absolute Lymphs (auto) PT INR APTT Puncture Site Left radial pH 7.490 H pCO2 38.0 pO2 54.0 L HCO3 29.0 H Total CO2 30.2 H Base Excess 5.4 H FiO2 % 21 Specimen Drawn By Spema Sodium Potassium Chloride Carbon Dioxide Anion Gap BUN Creatinine Estimated GFR (MDRD) Glucose Calculated Osmolality Calcium Total Bilirubin AST ALT Alkaline Phosphatase Creatine Kinase Troponin I Xkp-H-Nyyjmwveaab Pept Total Protein Albumin Urine Color Yellow Urine Clarity Clear Urine pH 6.0 Ur Specific Arjay 1.015 Urine Protein Neg Urine Glucose (UA) Neg Urine Ketones Neg Urine Occult Blood Neg Urine Nitrite Neg Urine Bilirubin Neg Urine Urobilinogen <2.0 Ur Leukocyte Esterase 1+ H Urine RBC 0-2 Urine WBC 2-5 Ur Epithelial Cells 2+ Hyaline Casts 0-2 Urine Mucus Occ - Diagnostic Findings EKG #1: 118 beats per minute. Atrial fibrillation with rapid ventricular response. ST and T-wave abnormality, consider lateral ischemia. T-wave inversions in leads 1, V5, and V6. Minimal ST depression in leads 2, 3, V4, and V5. Reviewed EKG personally. EKG #2: 51 beats per minute. Sinus bradycardia with sinus arrhythmia. Minimal voltage criteria for LVH. Nonspecific ST and T-wave abnormality. Minimal ST depression in leads 2, V2, V5, and V6. T-wave inversion in leads 3, AVF, V4, V5, and V6. Reviewed EKG personally. Chest x-ray, viewed personally: EXAM: CHEST 2 VIEW COMPARISON: 08/06/2015 FINDINGS: The heart size and mediastinal contours are within normal limits. Both lungs are clear. The visualized skeletal structures are unremarkable. IMPRESSION: No active cardiopulmonary disease. CTA chest: EXAM: CT ANGIOGRAPHY CHEST WITH CONTRAST TECHNIQUE: Multidetector CT imaging of the chest was performed using the standard protocol during bolus administration of intravenous contrast. Multiplanar CT image reconstructions and MIPs were obtained to evaluate the vascular anatomy. CONTRAST: 80 cc Isovue 370 COMPARISON: Chest radiograph dated 08/03/2016 FINDINGS: Evaluation of this exam is limited due to respiratory motion artifact. There is a 3.5 x 2.2 cm hypodense lesion in the posterior left hilum between the descending thoracic aorta and left lower lobe pulmonary artery which may represent an impacted mucus within the left upper lobe bronchus. An enlarged lymph node or hilar mass are not excluded. These lesion appears to cause mass effect and splaying of the small vessels adjacent to it. There is a small focal area of consolidative change in the superior segment of the left lower lobe superior to this lesion. There are bibasilar dependent atelectatic changes of the lungs. The lungs are otherwise clear. There is no pleural effusion or pneumothorax. The central airways are patent. There is atherosclerotic calcification of the thoracic aorta. There is no CT evidence of pulmonary embolism. Right hilar adenopathy measuring 1.5 cm in short axis. Right paratracheal lymph node measures 1.5 cm. There is a 1.2 cm nodule in the anterior mediastinum, likely a lymph node. The esophagus is grossly unremarkable. Mild cardiomegaly. Calcified mitral annulus as well as coronary vascular calcifications noted. There is a slightly dilated cord-like structure arising from the left atrial appendage which may be part of the left atrial anatomy or represent an aneurysmal vessel. Further evaluation with echocardiogram or gated cardiac CT is recommended. There is no axillary adenopathy. The chest wall soft tissues appear unremarkable. There is mild degenerative changes of the spine. No acute fracture. Cholecystectomy. Small scattered splenic calcified granuloma. The visualized upper abdomen is otherwise unremarkable. Review of the MIP images confirms the above findings. IMPRESSION: No CT evidence of pulmonary embolism. A 3.5 x 2.2 cm hypo attenuating lesion in the posterior aspect of the left hilum possibly representing an impacted mucus material with associated focal postobstructive atelectasis of the adjacent lung. An enlarged lymph node, or a hilar mass are not excluded. Bronchoscopy may provide better evaluation. Pulmonary consult is advised. Mild right hilar adenopathy as well as top-normal mediastinal lymph nodes. Cord like structure arising from the left atrial appendage. Further evaluation with echocardiogram or gated cardiac CT is recommended. - Assessment (1) Chest pain R07.9 - CHEST PAIN, UNSPECIFIED Acute Present on Admission: Yes Patient has known coronary artery disease with 2 stents placed several years ago. Rule out myocardial infarction. Plan: Obtain cardiac enzymes x 3. Place patient on telemetry. Give patient oxygen, aspirin. Give nitroglycerin, and morphine as needed for chest pain. Give statin. Stress test has been ordered for the morning. Patient has been advised, if the stress test is negative, to follow up with the primary care provider for evaluation of other potential causes of the chest pain. (2) New onset a-fib I48.91 - UNSPECIFIED ATRIAL FIBRILLATION Acute Present on Admission: Yes In emergency department, the patient had new onset atrial fibrillation with rapid ventricular response. She was given 1 dose of diltiazem in the emergency department and then converted to sinus bradycardia. Plan: Telemetry. Check electrolytes. 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 An enlarged lymph node, or a hilar mass are not excluded. Bronchoscopy may provide better evaluation. Pulmonary consult is advised. Mild right hilar adenopathy as well as top-normal mediastinal lymph nodes." Plan: Consult Dr. Brown, assistant spa manager, for further evaluation of the mass and lymphadenopathy. (4) Abnormal findings diagnostic imaging of heart and coronary circulation R93.1 - ABNORMAL FINDINGS ON DX IMAGING OF HEART AND COR CIRC Acute Present on Admission: Yes CT Chest findings: "Cord like structure arising from the left atrial appendage. Further evaluation with echocardiogram or gated cardiac CT is recommended." Plan: Consult special warfare combatant crewman for further evaluation of the left atrial abnormality. Echocardiogram ordered. (5) Bradycardia R00.1 - BRADYCARDIA, UNSPECIFIED Acute HISTORY, 2015: Mildly bradycardic on admission. If worsens may need to hold atenolol or switch to another agent. UPDATE: 08/03/16: Had tachycardia, a fib with RVR, initially, then after 1 dose of diltiazem converted to sinus rhythm and had mild bradycardia. Plan: Admit. Telemetry. Further eval depending on course. (6) Hypoxemia R09.02 - HYPOXEMIA Acute Present on Admission: Yes Plan: Placed on O2 by NC. Increase as needed. (7) Abnormal CT scan, chest R93.8 - ABNORMAL FINDINGS ON DIAGNOSTIC IMAGING OF BODY STRUCTURES Acute Present on Admission: Yes CT Chest findings: "IMPRESSION: No CT evidence of pulmonary embolism. A 3.5 x 2.2 cm hypo attenuating lesion in the posterior aspect of the left hilum possibly representing an impacted mucus material with associated focal postobstructive atelectasis of the adjacent lung. An enlarged lymph node, or a hilar mass are not excluded. Bronchoscopy may provide better evaluation. Pulmonary consult is advised. Mild right hilar adenopathy as well as top-normal mediastinal lymph nodes. Cord like structure arising from the left atrial appendage. Further evaluation with echocardiogram or gated cardiac CT is recommended." Plan: Consult Dr. Brown, assistant spa manager, for further evaluation of the mass. Consult special warfare combatant crewman for further evaluation of the left atrial abnormality. Echocardiogram ordered. (8) Elevated brain natriuretic peptide (BNP) level R79.89 - OTHER SPECIFIED ABNORMAL FINDINGS OF BLOOD CHEMISTRY Acute Present on Admission: Yes Patient denies any history of CHF. Plan: Monitor for any fluid overload. Obtaining Cardiology consult due to initial atrial fibrillation, resultant bradycardia, and abnormal imaging of the heart on CT scan. Case Care Discussed with: Patient, Family, Nursing Staff Total Time: 60 min
[2016-08-03] MEDS ORDERED: MORPHINE 2 MG/ML INJECTION IV PRN (21:54)
[2016-08-03] MEDS ORDERED: NITROGLYCERINE 0.4 MG TAB SL PRN (21:54)
[2016-08-03] MEDS ORDERED: [UNRECOGNIZED DRUG - OTHER] PO SCH (22:00)
[2016-08-03] MEDS ORDERED: Vaccine Screening Complete SCH (22:00)
[2016-08-03] MEDS ORDERED: CALCIUM CARBONATE PO SCH (22:00)
[2016-08-03] MEDS ORDERED: VITAMIN D3 PO SCH (22:00)
[2016-08-03] MEDS ORDERED: Non-Formulary Medication ITEM (Rosuvastatin Calcium [Crestor] 10 MG) PO SCH (22:00)
[2016-08-03] MEDS: CALCIUM CARBONATE + VITAMIN D 500 MG TAB PO SCH (23:26)
[2016-08-03] MEDS: OMEGA-3-ACID ETHYL ESTERS 1000 MG CAP PO SCH (23:27)
[2016-08-03] MEDS: ROSUVASTATIN 10 MG TAB PO SCH (23:27)
[2016-08-03] MEDS: ENOXAPARIN 100 MG PFS SQ SCH (23:27)
[2016-08-03] MEDS ORDERED: Enoxaparin 1 mg per kg per dose SQ SCH (23:45)
[2016-08-03] MEDS ORDERED: Pharmacy Order Set Alert SCH (23:45)
[2016-08-04 01:33] LABS: MPV 7.9 fL (7.4-10.4)
[2016-08-04 01:46] LABS: BLOOD UREA NITROGEN 19 MG/DL (7-17); CALCIUM 9.1 MG/DL (8.4-10.2); CALCULATED OSMOLALITY 277 MOs/Kg (270-290); CHLORIDE 104 mEq/L (98-107); GLUCOSE 101 mg/dL (70-99); SODIUM LEVEL 143 mEq/L (137-146)
[2016-08-04] MEDS ORDERED: KCl 10 mEq/100 ml Premix (Run) 10 MEQ/100 ML RTU IV SCH (03:46)
[2016-08-04] MEDS ORDERED: POTASSIUM CHLORIDE 20 MEQ TAB PO ONE ×2 (03:51→04:24)
[2016-08-04] MEDS: PANTOPRAZOLE 40 MG TAB PO SCH (04:46)
--- NOTE | 2016-08-04 07:40 | PCM.CARDCO ---
Consultation Date: 08/04/16 Requesting Physician: Matt Melendez Banquet Coordinator: Deshaun Pino Consult Reason: Other (CAD, chest pain atrial fibrillation) - History of Present Illness Last seen by me in the office 03/16/2005 with a history of CAD previous myocardial infarction with 2 drug-eluting stents right coronary artery for total occlusion 2007, atrial fibrillation paroxysmal previously not anticoagulated hypertensive heart disease with heart failure and hyperlipidemia. She presents to the hospital with approximately 1 hour of jaw neck and chest discomfort anginal in nature associated with rapid heart rhythm found to be in atrial fibrillation quickly converted to sinus rhythm. She is a background history of paroxysmally atrial fibrillation and recently had an episode a few weeks ago that was not as prolonged or severe. She is not having exertional angina when she is not in atrial fibrillation. CTA of the chest suggest left atrial thrombus Chief Complaint: chest pain, jaw/neck/head pain - Past Medical and Surgical History Cardiac History: Reports: Coronary Artery Disease (2 stents), Hypertension, Cardiac Catheterization (Stress myocardial perfusion study August 2014 showed no ischemia normal EF%), Hypercholesterolemia Respiratory History: Reports: Asthma (Mild intermittent. Does not wear oxygen at home. Denies sleep apnea.) GI/ History: Reports: Urinary Tract Infection Systemic History: Reports: Hypothyroidism Musculoskeletal History: Reports: Arthritis Psychological History: Reports: Depression, Anxiety. Denies: Alcoholism, Substance Use Disorder Neurological History: Reports: Migraine Past Surgical History: Reports: Appendectomy, Cardiac Catheterization (2 stents placed approximately 5 years ago in [place]), Tonsillectomy/Adnoidectomy Allergies No Known Allergies Allergy (Verified 08/03/16 16:42) Home Medications Aspirin [Aspirin, Chewable] 81 mg PO DAILY 10/24/12 Atenolol [Tenormin] 25 mg PO DAILY 10/24/12 Levothyroxine Sodium [Levoxyl] 137 mcg PO DAILY 10/24/12 Multivitamin [Multiple Vitamins] 1 tab PO DAILY 10/24/12 Niacin 500 mg PO BIDWM 10/24/12 Nitroglycerin [Nitrostat] 0.4 mg SL DAILY PRN 10/24/12 [place]-3 Fatty Acids/Fish Oil [Fish Oil 1,000 mg Softgel] 2 cap PO BID 10/24/12 Omeprazole 40 mg PO DAILY 10/24/12 Rosuvastatin Calcium [Crestor] 10 mg PO QHS 10/24/12 Sertraline HCl [Zoloft] 200 mg PO DAILY 10/24/12 Buspirone HCl 15 mg PO DAILY 03/11/16 Valsartan/Hydrochlorothiazide [Valsartan-Hctz 80-12.5 mg Tab] 1 tab PO DAILY Calcium Carbonate/Vitamin D3 [Calcium 600 + Vit D 200 Tablet] 1 each PO BID 02/09 - Social History Travel Outside of [place] in the Last 3 Months?: No Lives: with Spouse Smoking Status: Former smoker (Quit 30 or more years ago. Previously 1.5 to 2 ppd. Started 14yo.) Social History: Denies: Alcohol Use, Other Substance Use - Family History Reports: Hypertension (Father, brother), Diabetes (Mother), Cancer (Mother, brother), Cardiac Disorders (Father: early [place] and at 55yo. Mother: heart disease.) - Review of Systems Yes All systems reviewed and were negative except as marked Constitutional: Diaphoresis - Cardiovascular Chest Pain (Radiating to the neck and jaw), Palpitations - Physical Exam Constitutional: No apparent distress, Alert Oriented to: Time, Person, Place Exam: Last Vital Signs Temp 97.7 F 08/04/16 04:00 Pulse 46 L 08/04/16 06:00 Resp 18 08/04/16 04:00 BP 134/63 08/04/16 04:00 Pulse Ox 95 08/04/16 04:00 Intake & Output 08/03/16 08/03/16 08/04/16 15:59 23:59 07:59 Intake Total 1000 Output Total 400 Balance 600 Patient's weight 195 lb 1.6 oz 194 lb 9.6 oz - HEENT Head: Normal (No bruit neck vein distention thyromegaly) Eye: Normal (PERRL, EOMI, Sclera white) Oropharynx: Normal (Pharynx:Moist without exudate,Gums-no swelling) Nose: No Symptoms Reported (septum midline) - Respiratory/Cardiovascular Respiratory: Normal - CTA Cardiovascular: Normal. negative: Systolic murmur, Gallop/S3, Gallop/S4 (In sinus rhythm) - GI Auscultation: Normal (Soft nondistended nontender) Palpation: Normal (Soft,No rebound or guarding, non distended) Tenderness: Non tender Rectal Exam: Deferred - Musculoskeletal Back: Normal (Non-Tender) Extremities: Normal (Normal tone, Pulses 2+ No cyanosis or edema, FROM), Femoral Pulse, Pedal Pulse, Radial Pulse. negative: Calf Tenderness, Clubbing, Cyanosis, Edema, Pedal Edema - Integumentary Skin: Normal, Warm, Dry Lymphatics: Normal (no adenopathy) - Neurologic Memory Impaired: Normal Cerebellar: Normal Mood Description: Normal Perception: Normal - Lab Results Laboratory Tests 08/03/16 08/03/16 08/03/16 16:47 16:47 19:46 Hgb 13.0 Potassium Creatinine Troponin I < 0.01 0.02 Cko-T-Fxyqqbdpsjt Pept 2560 H LDL Cholesterol, Calc 08/03/16 08/04/16 08/04/16 23:40 01:00 01:00 Hgb 11.7 L Potassium 3.1 L Creatinine 0.80 Troponin I 0.02 Ddw-L-Hcifouxxyrb Pept LDL Cholesterol, Calc 79.0 EKG show minor T-wave abnormality no acute ischemic changes Telemetry shows her to continue in sinus rhythm CTA of chest:IMPRESSION: No CT evidence of pulmonary embolism. A 3.5 x 2.2 cm hypo attenuating lesion in the posterior aspect of the left hilum possibly representing an impacted mucus material with associated focal postobstructive atelectasis of the adjacent lung. An enlarged lymph node, or a hilar mass are not excluded. Bronchoscopy may provide better evaluation. Pulmonary consult is advised. Mild right hilar adenopathy as well as top-normal mediastinal lymph nodes. Cord like structure arising from the left atrial appendage. Further evaluation with echocardiogram or gated cardiac CT is recommended - Assessment/Plan (1) PAF (paroxysmal atrial fibrillation) I48.0 - PAROXYSMAL ATRIAL FIBRILLATION Acute Present on Admission: Yes Comment: She presents the hospital with paroxysmally atrial fibrillation with associated angina. Her chads 2 Vasc score equals 3 and with her without the CTA findings she should be anticoagulated with 1 of the newer agents. She has a history of thyroid disease I have ordered thyroid studies echocardiogram is ordered to look at the left atrium for thrombus. The resting heart rate is in the 50s I will likely restart her low-dose of a 10 loss she took as an outpatient tomorrow and I will start anti rhythmic therapy with Multaq and depending on the results of her myocardial perfusion study transition to a direct anticoagulant. This can be withdrawn without bridging for pulmonary procedures (2) CAD (coronary artery disease) I25.10 - ATHSCL HEART DISEASE OF [place] CORONARY ARTERY W/O ANG PCTRS Chronic [place] artery [place] heart with unspecified angina I25.119 - Atherosclerotic heart disease of [place] coronary artery with unspecified angina pectoris Comment: Continue aspirin high intensity statin and perform myocardial perfusion study for risk assessment is is making regarding coronary arteriography today. (3) Thrombus of left atrial appendage [id number] - Chronic Present on Admission: Yes Comment: Suggested by non gated CT scan echocardiogram ordered and regardless of the results of with still anticoagulated with a chads 2 Vasc score 3 (4) Hypertensive heart disease I11.9 - HYPERTENSIVE HEART DISEASE WITHOUT HEART FAILURE Chronic Present on Admission: Yes without heart failure I11.9 - Hypertensive heart disease without heart failure Comment: Stable continue her ARB diuretic combination Case Care Discussed with: Patient, Family (And Dr. Melendez)
[2016-08-04] MEDS ORDERED: SODIUM CHLORIDE 0.9% 10 ML FLUSH FLUSH ONE (08:30)
[2016-08-04] MEDS ORDERED: REGADENOSON 0.4 MG/5 ML SYRINGE IV ONE (08:30)
[2016-08-04] MEDS ORDERED: Non-Formulary Medication ITEM (Multivitamin [Multiple Vitamins] 1 TAB) PO SCH (09:00)
[2016-08-04] MEDS ORDERED: Non-Formulary Medication ITEM (Omeprazole [Omeprazole] 40 MG) PO SCH (09:00)
[2016-08-04] MEDS ORDERED: Non-Formulary Medication ITEM (Buspirone Hcl [Buspirone Hcl] 15 MG) PO SCH (09:00)
[2016-08-04] MEDS ORDERED: HYDROCHLOROTHIAZIDE 12.5 MG CAP PO SCH (09:00)
[2016-08-04] MEDS ORDERED: SESTAMIBI 8 MCI V IV ONE (09:46)
--- NOTE | 2016-08-04 11:39 | CAPUECHO ---
INDICATION: A-FIB AND ABNORMAL LEFT ATRIAL ABNORMALITY ON CT HEIGHT: 165.1 cm (5 ft 5.0 in) WEIGHT: 88.0 kg (194.0 lbs) BP: 158/77 BSA: 1.297485 m MEASUREMENTS 2D RVIDd: 3.1 cm LVOT Diam: 2.1 cm LA Diam: 4.3 cm EF Biplane: 76.62 % LAESV MOD A4C: 109.1 ml LAESV MOD A2C: 137.9 ml LAESV Index (A-L): 63.72 ml/m M-MODE IVSd: 1.1 cm LVIDd: 5.6 cm LVPWd: 1.1 cm LVIDs: 3.3 cm EF(Teich): 71 % Ao Diam: 2.8 cm LA Diam: 4.6 cm DOPPLER MV E Juan: 1.21 m/s MV A Juan: 0.84 m/s MV PHT: 36.52 ms MVA By PHT: 6.02 cm LVOT Vmax: 1.41 m/s AV Vmax: 1.69 m/s KISHA Vmax, Pt: 2.79 cm TR Vmax: 1.92 m/s TR maxP mmHg RVSP: 24.81 mmHg FINDINGS ------- Procedure:2D images, m-mode, color and spectral Doppler were obtained and reviewed. ECG rhythm:Sinus rhythm. Study quality:This was a technically adequate study nto TDS. Left Ventricle:The left ventricle is mildly dilated. There is borderline concentric left ventricul ar hypertrophy. Left ventricular systolic function is hyperdynamic with an estimated EF of >70%. No regional wall motion abnormalities were noted. Right Ventricle:The right ventricle is normal in size and function. Left Atrium:The left atrium is moderately dilated. Right Atrium:The right atrium is normal in size and function. Aortic Valve:The aortic valve is trileaflet, and appears structurally normal. No aortic stenosis or regurgitation. Mitral Valve:Mild mitral annular calcification present. There is trace mitral regurgitation. Tricuspid Valve:The tricuspid valve appears structurally normal. Trace tricuspid regurgitation pre sent. The right ventricular systolic pressure, as measured by Doppler, is 25mmHg. Pulmonic Valve:The pulmonic valve was not well visualized. Aorta:The aortic root, ascending aorta and aortic arch appear normal. IVC:Normal inferior vena cava with normal inspiratory collapse. Pericardium:Echo free space may represent effusion or a pericardial fat pad. CONCLUSIONS 1. Left ventricular systolic function is hyperdynamic with an estimated EF of >70%. 2. The left atrium is moderately dilated. Electronically Signed By: Deshaun Pino MD, [facility] Electronically Signed On: 11:39:08
--- NOTE | 2016-08-04 11:42 | CAPUEKG ---
[place], [place] Test Date: 2016-08-04 Pat Name: GIUSEPPE HOWELL Department: Room: 429 Gender: Male Director Regulatory Compliance: : Requested By: Order Number: Reading MD: Deshaun Pino MD Measurements Intervals Priddy Rate: 45 P: 46 NH: 172 QRS: -1 QRSD: 102 T: 6 QT: 496 QTc: 429 Interpretive Statements sinus bradycardia with sinus arrhythmia Minimal voltage criteria for LVH, may be normal variant Nonspecific ST and T wave abnormality Abnormal ECG Electronically Signed On 08-04-16 11:41:28 EST by Deshaun Pino MD [id number]> [id number]
[2016-08-04] MEDS: ASPIRIN (CHEWABLE) 81 MG TAB PO SCH (12:04)
[2016-08-04] MEDS: OMEGA-3-ACID ETHYL ESTERS 1000 MG CAP PO SCH ×2 (12:05→23:25)
[2016-08-04] MEDS: VALSARTAN 80 MG TAB PO SCH (12:05)
[2016-08-04] MEDS: SERTRALINE HCL 100 MG TAB PO SCH (12:06)
[2016-08-04] MEDS: LEVOTHYROXINE 137 MCG TABLET PO SCH (12:06)
[2016-08-04] MEDS: DRONEDARONE 400 MG TAB PO SCH ×2 (12:06→23:26)
[2016-08-04] MEDS: CALCIUM CARBONATE + VITAMIN D 500 MG TAB PO SCH ×2 (12:07→17:10)
[2016-08-04] MEDS: VITAMINS, MULTIPLE CAP PO SCH (12:07)
[2016-08-04] MEDS: ENOXAPARIN 100 MG PFS SQ SCH ×2 (12:10→23:26)
[2016-08-04] MEDS: BUSPIRONE 5 MG TAB PO SCH (12:10)
[2016-08-04] MEDS ORDERED: Enoxaparin 1 mg per kg per dose SQ SCH (14:00)
--- NOTE | 2016-08-04 16:39 | DIRPT ---
CLINICAL DATA: 71-year-old with prior coronary artery stenting in 2008, risk factors for coronary artery disease including hypertension, hyperlipidemia, and family history of coronary artery disease in her father who of an LA at age 55, presenting this admission with atrial fibrillation with rapid ventricular response. EXAM: MYOCARDIAL IMAGING WITH SPECT (REST AND PHARMACOLOGIC-STRESS) GATED LEFT VENTRICULAR WALL MOTION STUDY LEFT VENTRICULAR EJECTION FRACTION TECHNIQUE: Standard myocardial SPECT imaging was performed after resting intravenous injection of 8 mCi Tc-99m sestamibi. Subsequently, intravenous infusion of Lexiscan was performed under the supervision of the Cardiology staff. At peak effect of the drug, 25 mCi Tc-99m sestamibi was injected intravenously and standard myocardial SPECT imaging was performed. Quantitative gated imaging was also performed to evaluate left ventricular wall motion, and estimate left ventricular ejection fraction. COMPARISON: 09/01/2014. FINDINGS: Perfusion: Focal hot spots in the septum on the post regadenoson images and in the apex on the resting images, both artifactual. No focal perfusion abnormality to suggest myocardial ischemia or infarct. Wall Motion: Normal left ventricular wall motion. No left ventricular dilation. Left Ventricular Ejection Fraction: 70% End diastolic volume 101 ml End systolic volume 31 ml IMPRESSION: 1. No reversible ischemia or infarction. 2. Normal left ventricular wall motion. 3. Left ventricular ejection fraction 70% 4. Low-risk stress test findings*. *2011 Appropriate Use Criteria for Coronary Revascularization Focused Update: J Am Kallie Cardiol. 2012;59(9):857-881. http://content.onlinejacc.org/article.[email or web address] Electronically Signed By: Isaías Carcamo M.D. On: 08/04/2016 16:36
[2016-08-04] MEDS ORDERED: ACETAMINOPHEN 325 MG/TAB TABLET PO PRN (17:25)
[2016-08-04] MEDS ORDERED: GI COCKTAIL 30 ML DOSE PO PRN (17:25)
[2016-08-04] MEDS ORDERED: GI COCKTAIL 30 ML DOSE PO ONE (17:30)
[2016-08-04] MEDS ORDERED: PANTOPRAZOLE 40 MG TAB PO ONE (17:30)
[2016-08-04] MEDS ORDERED: METOPROLOL 5 MG/5 ML SDV IV ONE ×2 (17:41→17:46)
[2016-08-04] MEDS ORDERED: ADV IV ONE (18:28)
[2016-08-04] MEDS ORDERED: DILTIAZEM 100 MG IV ONE (18:28)
[2016-08-04] MEDS: Diltiazem HCl 100 MG in D5W 100 ML IV SCH (18:38)
--- NOTE | 2016-08-04 19:36 | GENMEDPROG ---
Subjective Note: Patient in bed responsive follows command. Denies any further episodes of chest pain or palpitations. Reports no difficulties breathing cough phlegm production. Notes Reviewed: Yes: Events from last night noted and discussed with Clinical Staff Current Medication List: Reviewed Currently: Reports: PLAZA, Tobacco Use/Hx, Reflux Sx DVT Prophylaxis: Yes - Physical Examination Vital Signs and I&O: Last Vital Signs Temp 98.5 F 08/04/16 16:06 Pulse 64 08/04/16 18:54 Resp 20 08/04/16 16:06 BP 152/102 H 08/04/16 18:23 Pulse Ox 93 08/04/16 16:06 Oxygen Pulse Oxygen Saturation 93 O2 Device Oxygen Flow Rate Fraction of Inspired Oxygen ( FIO2) Intake & Output 08/01/16 08/02/16 08/03/16 08/04/16 23:59 23:59 23:59 23:59 Intake Total 480 Output Total 300 Balance 180 General: Alert, Oriented x3, Cooperative, No acute distress, Mild distress HEENT: Normal, PERRLA, EOMI, Anicteric Sclera Neck: Non-tender, Limited range of motion Lymphatics: Normal (no adenopathy) Respiratory: Normal - CTA Cardiovascular: Regular rate, Normal S1, Normal S2, Murmurs, Irregular GI: Normal bowel sounds, Soft, Non tender, No hepatospenomegaly, No masses Extremities/Musculoskeletal: Normal pulses, Edema, DJD Skin: Warm,Dry and Intact, No rashes, No breakdown, No significant lesion Neurological: Normal speech, Cranial nerves 3-12 NL Psych/Mental Status: Anxious Lab/DI/Studies Reviewed: Allergies No Known Allergies Allergy (Verified 08/03/16 16:42) 08/04/16 01:00 08/04/16 08:10 Abnormal Lab Results 08/04/16 08/04/16 01:00 01:00 Hgb 11.7 L Hct 34.3 L RDW 14.9 H Potassium 3.1 L BUN 19 H Glucose 101 H HDL Cholesterol 30.0 L Last Vital Signs Temp 98.5 F 08/04/16 16:06 Pulse 64 08/04/16 18:54 Resp 20 08/04/16 16:06 BP 152/102 H 08/04/16 18:23 Pulse Ox 93 08/04/16 16:06 - Assessment (1) Chest pain Acute R07.9 - CHEST PAIN, UNSPECIFIED Qualifiers: Chest pain type: unspecified Qualified Code(s): R07.9 - Chest pain, unspecified Comment/Plan: Ruled out [place] by cardiac enzymes.. (2) New onset a-fib Acute I48.91 - UNSPECIFIED ATRIAL FIBRILLATION Comment/Plan: Keep K more than 4 magnesium more than 2. Anticoagulate. Continue diltiazem. 2D echo pending. will follow Cardiology recommendations (3) Hypertensive heart disease Chronic I11.9 - HYPERTENSIVE HEART DISEASE WITHOUT HEART FAILURE Qualifiers: Heart failure presence: without heart failure Qualified Code(s): I11.9 - Hypertensive heart disease without heart failure Comment/Plan: Continue meds keep SBP less than 140 (4) GERD (gastroesophageal reflux disease) Chronic K21.9 - GASTRO-ESOPHAGEAL REFLUX DISEASE WITHOUT ESOPHAGITIS Qualifiers: Esophagitis presence: without esophagitis Qualified Code(s): K21.9 - Gastro -esophageal reflux disease without esophagitis Comment/Plan: Continue PPI (5) Abnormal CT scan, chest Acute R93.8 - ABNORMAL FINDINGS ON DIAGNOSTIC IMAGING OF BODY STRUCTURES Comment/Plan: Pulmonary to see. (6) Thrombus of left atrial appendage Chronic [id number] - Comment/Plan: Continue anticoagulation (7) Hypothyroidism Chronic E03.9 - HYPOTHYROIDISM, UNSPECIFIED Qualifiers: Hypothyroidism type: acquired Qualified Code(s): E03.9 - Hypothyroidism, unspecified Comment/Plan: Continue home meds Case Care Discussed with: Patient, Consultants, Family, Nursing Staff, Respiratory Therapy, Quality Control Scientist Education/Counseling Given To: Patient Education/Counseling Given Regarding: Diagnosis, Treatment, Prognosis, Follow Up Total Time: 45 min . Critical Care: No Code: 76531 (12+)
[2016-08-04] MEDS ORDERED: Medication Hold Instructions SCH (21:00)
--- NOTE | 2016-08-04 21:36 | HIMCONS ---
DATE OF CONSULT: REQUESTING PHYSICIAN: Charly Barry MD REASON FOR CONSULTATION: Lung mass. HISTORY OF PRESENT ILLNESS: The patient is a 71-year-old lady with past medical history significant coronary artery disease with stents placed x2 in 2007. She presented with upper chest and neck pain and tightness with headaches and the pain also started in gums and mouth and her hyoid with bilateral jaw pain. The patient presented yesterday with complaints and was also having shortness of breath and has had significant diaphoresis. According to the patient, she has had diaphoresis normally. She was having racing heart palpitations and was found to have atrial fibrillation with rapid ventricular response, was seen and treated appropriately. She has been having some cough off and on, but denies any hemoptysis, hematemesis, hematochezia, melena, nausea, vomiting, diarrhea, or constipation. Denies any abdominal pain, leg pains, or swelling. Denies any other complaints. PAST MEDICAL HISTORY: 1. Significant for coronary artery disease, status post 2 stents. 2. Hypertension. 3. Cardiac catheterization in 2007. 4. Hypercholesterolemia. 5. Mild intermittent asthma. 6. History of urinary tract infection, arthritis, hypothyroidism, depression, anxiety. SURGICAL HISTORY: Significant for cardiac catheterization x2, as mentioned above. History of tonsillectomy, adenoidectomy, appendicectomy. ALLERGIES: THE PATIENT HAS NO KNOWN DRUG ALLERGIES. MEDICATIONS: In the chart were noted. FAMILY HISTORY: Significant for mother having diabetes, cancer. Father had LA at the early age of 55 and hypertension as well. SOCIAL HISTORY: The patient has been a smoker, quit about 30 years ago. She used to smoke 2 packs a day for about 20+ years. No history of alcohol or drug abuse. REVIEW OF SYSTEMS: Entire review of systems is negative except for as mentioned in the history of present illness. PHYSICAL EXAMINATION: VITAL SIGNS: Temperature is 98.5 degrees Fahrenheit, pulse is 137, respiratory rate is 20, blood pressure is 152/102, pulse ox is 93% on oxygen. CHEST: Clear to auscultation. No wheezing. HEART: S1, S2. Regular. No murmur. EXTREMITIES: No clubbing, cyanosis, or edema. ABDOMEN: Soft and nontender. Bowel sounds present. Hepatosplenomegaly is absent. NEURO: Grossly nonfocal. The patient is moving all extremities. LABORATORY DATA: White count 6.8, hemoglobin is 11.7, hematocrit 34.3, platelets are 140. PT and INR within normal limits. Blood gas showed a pH of 7.49, pCO2 of 38, PO2 of 54 on room air. Sodium 143, potassium 3.1, chloride 104, CO2 of 30, BUN is 19, creatinine 0.8, glucose is 101. LFTs are within normal limits. ProBNP was 2560. IMAGING REPORTS: CAT scan of the chest was seen personally. The patient seems to have 3.5 centimeter mass in the left lower lobe close to the hilum with minimal bilateral hilar adenopathy. IMPRESSION: 1. Atrial fibrillation with rapid ventricular response, chest pains, and new onset atrial fibrillation. 2. Left lung mass. 3. Multiple other issues as mentioned above. PLAN: The patient would need a bronchoscopy of this mass and I think that we would be able to range it; however, the patient has been having tachycardia with atrial fibrillation and heart rate went to 160 at around 3:30 today which was controlled eventually. I think that the patient needs to be stabilized first with her heart rate along with anticoagulation and I would then follow the patient in my office within few days after her discharge and arrange for bronchoscopy as an outpatient. I think, it will be more appropriate because the patient has had episodes of significantly rapid ventricular response to her atrial fibrillation. The patient will definitely need to have a bronchoscopy done in near future. The patient would also need an outpatient pulmonary function test to evaluate her pulmonary function, so I think most of her shortness of breath is most likely coming from atrial fibrillation, which is with rapid ventricular response; however, I would follow the patient closely, I would not change anything as far as the medications concerned at this time and continue other supportive care. Thank you very much for the consultation. I will follow the patient with you. [id number]
[2016-08-04] MEDS: ROSUVASTATIN 10 MG TAB PO SCH (23:25)
[2016-08-05] MEDS ORDERED: METOPROLOL 5 MG/5 ML SDV IV PRN
[2016-08-05 04:41] VITALS: BMI 32.5
[2016-08-05] MEDS: Diltiazem HCl 100 MG in D5W 100 ML IV SCH ×2 (05:19→12:44)
[2016-08-05] MEDS: PANTOPRAZOLE 40 MG TAB PO SCH (06:01)
--- NOTE | 2016-08-05 07:42 | PCM.CARD ---
- Subjective Reason for visit: For atrial fibrillation and CAD Current Assessment: No New Symptoms. negative: Chest Pain, Nausea, Orthopnea, Palpitations, Shortness of Breath, Vomiting Vital Signs: Last Vital Signs Temp 97.6 F 08/05/16 04:00 Pulse 49 L 08/05/16 06:50 Resp 18 08/05/16 04:00 BP 145/73 08/05/16 06:50 Pulse Ox 93 08/05/16 04:00 Respiratory: Diminished. negative: Rales Jugular Vein Distention: None Pulse Rhythm: Regular EKG Rhythm: Sinus Rhythm EKG Ectopy: Runs >10 beats (She approximately 2 hours of paroxysmally atrial fibrillation yesterday) Heart Sounds: S1 & S2, Distant. negative: S3 (No edema) Lab/DI Results Reviewed: Myocardial perfusion study yesterday showed attenuation no ischemia normal function I independently reviewed the CTA of the chest along with the radiologist, the images were not gated the left atrium was difficult to define and there is no definitive finding of thrombus present. Echocardiogram shows no thrombus the left atrium - Assessment/Plan (1) PAF (paroxysmal atrial fibrillation) Acute I48.0 - PAROXYSMAL ATRIAL FIBRILLATION Present on Admission: Yes Comment/Plan: Start anti rhythmic, Multaq yesterday. Her chads 2 Vasc score is 3 and she should be anticoagulated. She has not had a recent stroke and I do not think she require bridging anticoagulation for outpatient endoscopy. If ready for dye hospital discharge she can be transition to an oral anticoagulant. She has had nocturnal sinus bradycardia and I would like to see her up and ambulate and see her heart rate response as I think she should resume her low-dose of a beta- kalpesh his background therapy for rate control of atrial fibrillation risk occurs. (2) CAD (coronary artery disease) Chronic I25.10 - ATHSCL HEART DISEASE OF [place] CORONARY ARTERY W/O ANG PCTRS unga artery unga heart with unspecified angina I25.119 - Atherosclerotic heart disease of [place] coronary artery with unspecified angina pectoris Comment/Plan: Stable, no evidence acute coronary syndrome and I do not think at this time she requires coronary arteriography in view of her myocardial perfusion study findings (3) Hypertensive heart disease Chronic I11.9 - HYPERTENSIVE HEART DISEASE WITHOUT HEART FAILURE Present on Admission: Yes without heart failure I11.9 - Hypertensive heart disease without heart failure Comment/Plan: Stable continue current treatment including ARB
--- NOTE | 2016-08-05 09:10 | PCM.PULM ---
Chief Complaint: Left lung mass Chest pain Hypoxemia Atrial fibrillation with RVR Coronary artery disease Patient in bed resting comfortably family at bedside. Denies palpitation and chest pain this morning but had an episode of it last night and was put on Diltiazem drip. Her breathing has been fair on room air and she ambulates in room Medication list reviewed:yes Notes reviewed:yes, Events from last night noted and discussed with Clinical Staff - Physical Examination Vital Signs and I&O: Last Vital Signs Temp 97.6 F 08/05/16 04:00 Pulse 56 L 08/05/16 08:57 Resp 18 08/05/16 04:00 BP 140/68 08/05/16 08:57 Pulse Ox 93 08/05/16 04:00 Oxygen Pulse Oxygen Saturation 93 O2 Device Room Air Oxygen Flow Rate Fraction of Inspired Oxygen ( FIO2) Intake & Output 08/02/16 08/03/16 08/04/16 08/05/16 23:59 23:59 23:59 23:59 Intake Total 480 383 Output Total 500 400 Patient's weight 88.541 kg General: Alert, Oriented x3, Cooperative, No acute distress Respiratory: Normal - CTA, Diminished Cardiovascular: No Gallops,Rubs/Murmurs, Good Pedal Pulses, Irregular (atrial fibrillation) GI: Normal bowel sounds, Soft, Non tender, No hepatospenomegaly, No masses Extremities/Musculoskeletal: Normal pulses Skin: Warm,Dry and Intact, No rashes, No breakdown, No significant lesion Neurological: Normal Steady Gait, Normal speech, Strength at 5/5 X4 ext, Cranial nerves 3-12 NL Psych/Mental Status: Appropriate, Cooperative, Anxious Result Diagrams: 08/04/16 01:00 08/04/16 08:10 Labs (last 24 hours): Laboratory Results - last 24 hr 08/04/16 08/05/16 18:15 01:10 Troponin I < 0.01 0.02 Lab/DI/Studies Reviewed: EKG: Atrial fibrillation BRADYCARDIA AT RATE OF 50S CARDIAC STRESS TEST: 1. No reversible ischemia or infarction. 2. Normal left ventricular wall motion. 3. Left ventricular ejection fraction 70% 4. Low-risk stress test findings Medications Diltiazem HCl 100 mg/ Dextrose 100 mls @ 5 mls/hr IV Q10H JUANIS; 5 MG/HR PRN Reason: Protocol Stop: 08/18/16 16:59 Last Admin: 08/05/16 05:19 Dose: Not Given Dronedarone (Multaq) 400 mg PO BID [facility] Stop: 08/18/16 11:59 Last Admin: 08/04/16 23:26 Dose: 400 mg Nitroglycerin (Ntg (Nitrostat Sublingual Tab)) 0.4 mg SL PRN PRN; Protocol PRN Reason: Chest Pain or Discomfort Stop: 08/17/16 16:59 Acetaminophen (Tylenol Tablet) 650 mg PO Q6H PRN PRN Reason: Mild Pain or Fever Stop: 08/18/16 16:59 Last Admin: 08/04/16 17:52 Dose: 650 mg Aspirin (Aspirin, Chewable) 81 mg PO DAILY [facility] Stop: 08/18/16 08:59 Last Admin: 08/04/16 12:04 Dose: 81 mg Buspirone HCl (Buspar) 15 mg PO DAILY [facility] Stop: 08/18/16 08:59 Last Admin: 08/04/16 12:10 Dose: Not Given Enoxaparin Sodium (Lovenox) 90 mg SQ Q12H [facility] Stop: 08/17/16 22:59 Last Admin: 08/04/16 23:26 Dose: 90 mg Metoprolol Tartrate (Lopressor) 5 mg IV Q8H PRN PRN Reason: pulse greater than 130 Stop: 08/19/16 00:00 Morphine Sulfate (Morphine Sulfate) 2 mg IV Q3H PRN PRN Reason: Pain-NPO/PO Med Not Effective Stop: 08/10/16 21:53 Niacin (Niacin) 500 mg PO BIDWM [facility] Stop: 08/17/16 21:59 Last Admin: 08/04/16 16:28 Dose: Not Given Wymye-4-Vnfk Ethyl Esters (Lovaza ([place]-3 Acid Ethyl Esters)) 2,000 mg PO BID [facility] Stop: 08/17/16 22:59 Last Admin: 08/04/16 23:25 Dose: 2,000 mg Pantoprazole Sodium (Protonix) 40 mg PO 0600 [facility] Stop: 08/18/16 05:59 Last Admin: 08/05/16 06:01 Dose: 40 mg Rosuvastatin Calcium (Crestor) 10 mg PO QHS [facility] Stop: 08/17/16 22:59 Last Admin: 08/04/16 23:25 Dose: 10 mg Valsartan (Diovan) 80 mg PO DAILY [facility] Stop: 08/18/16 08:59 Last Admin: 08/04/16 12:05 Dose: 80 mg - Assessment/Plan (1) Abnormal CT scan, chest Acute R93.8 - ABNORMAL FINDINGS ON DIAGNOSTIC IMAGING OF BODY STRUCTURES Comment/Plan: Patient is going to need a bronchoscopy because of the left lower lobe mass however I would do want the patient to be more stable as far as her cardiac issues are concerned and she may need a PET scan and a pulmonary function test before any procedure can be planned however I would see the patient closely would follow the patient up as an outpatient and do a bronchoscopy within the next few days after her discharge continue other supportive care on this patient (2) Hypoxemia Acute R09.02 - HYPOXEMIA Comment/Plan: Continue oxygen as needed (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
[2016-08-05] MEDS: ASPIRIN (CHEWABLE) 81 MG TAB PO SCH (09:28)
[2016-08-05] MEDS: VALSARTAN 80 MG TAB PO SCH (09:29)
[2016-08-05] MEDS: OMEGA-3-ACID ETHYL ESTERS 1000 MG CAP PO SCH ×2 (09:29→20:14)
[2016-08-05] MEDS: BUSPIRONE 5 MG TAB PO SCH (09:29)
[2016-08-05] MEDS: DRONEDARONE 400 MG TAB PO SCH ×2 (09:30→20:14)
[2016-08-05] MEDS: LEVOTHYROXINE 137 MCG TABLET PO SCH (09:30)
[2016-08-05] MEDS: SERTRALINE HCL 100 MG TAB PO SCH (09:31)
[2016-08-05] MEDS: VITAMINS, MULTIPLE CAP PO SCH (12:30)
[2016-08-05] MEDS: CALCIUM CARBONATE + VITAMIN D 500 MG TAB PO SCH ×2 (12:30→17:29)
[2016-08-05] MEDS: ENOXAPARIN 100 MG PFS SQ SCH ×2 (12:31→20:15)
--- NOTE | 2016-08-05 16:45 | PCM.STRESS ---
This is a Lexiscan Cardiolite test. The patient received a standard unit dose of Lexiscan. The resting heart rate and blood pressure, 65 beats per minute 158/92. Peak heart rate and blood pressure, 75 beats per minute and 158/92. Resting EKG shows sinus rhythm with minor nonspecific ST abnormality. The stress EKG ST segment response is normal to 51% of maximum predicted heart rate of 147 beats per minute. The blood pressure response is normal. The rhythm is sinus, there is no arrhythmia. Symptoms present include flushing and transient shortness of breath. The radiologist will generate the Cardiolite image report.
--- NOTE | 2016-08-05 18:13 | GENMEDPROG ---
Subjective Note: Patient in bed responsive follows commands. Ambulating with no dyspnea or palpitations. Notes Reviewed: Yes: Events from last night noted and discussed with Clinical Staff Current Medication List: Reviewed Currently: Reports: PLAZA, Tobacco Use/Hx, Reflux Sx DVT Prophylaxis: Yes - Physical Examination Vital Signs and I&O: Last Vital Signs Temp 97.9 F 08/05/16 17:07 Pulse 60 08/05/16 17:07 Resp 18 08/05/16 17:07 BP 144/82 08/05/16 17:07 Pulse Ox 94 08/05/16 17:07 Oxygen Pulse Oxygen Saturation 94 O2 Device Room Air Oxygen Flow Rate Fraction of Inspired Oxygen ( FIO2) Intake & Output 08/02/16 08/03/16 08/04/16 08/05/16 23:59 23:59 23:59 23:59 Intake Total 480 1008 Output Total 500 2200 Balance -20 -1192 Patient's weight 88.541 kg General: Alert, Oriented x3, Cooperative, No acute distress HEENT: Normal, PERRLA, EOMI, Anicteric Sclera Neck: Non-tender, Limited range of motion Lymphatics: Normal Respiratory: Diminished. negative: Rales Cardiovascular: Regular rate, Normal S1, Normal S2, Murmurs GI: Normal bowel sounds, Soft, Non tender, No masses Extremities/Musculoskeletal: Normal pulses Skin: Warm,Dry and Intact, No rashes, No breakdown Neurological: Normal Steady Gait, Normal speech, Normal tone, Reflexes 2+ Psych/Mental Status: Anxious - Assessment (1) Chest pain Acute R07.9 - CHEST PAIN, UNSPECIFIED Qualifiers: Chest pain type: unspecified Qualified Code(s): R07.9 - Chest pain, unspecified Comment/Plan: Ruled out [place] by cardiac enzymes. Stress test negative for ischemia. (2) New onset a-fib Acute I48.91 - UNSPECIFIED ATRIAL FIBRILLATION Comment/Plan: Keep K more than 4 magnesium more than 2. Anticoagulated. Follow by Cardiology started on Multaq (3) Hypertensive heart disease Chronic I11.9 - HYPERTENSIVE HEART DISEASE WITHOUT HEART FAILURE Qualifiers: Heart failure presence: without heart failure Qualified Code(s): I11.9 - Hypertensive heart disease without heart failure Comment/Plan: Continue meds keep SBP less than 140 (4) GERD (gastroesophageal reflux disease) Chronic K21.9 - GASTRO-ESOPHAGEAL REFLUX DISEASE WITHOUT ESOPHAGITIS Qualifiers: Esophagitis presence: without esophagitis Qualified Code(s): K21.9 - Gastro -esophageal reflux disease without esophagitis Comment/Plan: Continue PPI (5) Abnormal CT scan, chest Acute R93.8 - ABNORMAL FINDINGS ON DIAGNOSTIC IMAGING OF BODY STRUCTURES Comment/Plan: Seen by Pulmonary, for outpatient bronchoscopy (6) Thrombus of left atrial appendage Ruled-out [id number] - Comment/Plan: Continue anticoagulation. Echocardiogram did not confirm this CT finding (7) Hypothyroidism Chronic E03.9 - HYPOTHYROIDISM, UNSPECIFIED Qualifiers: Hypothyroidism type: acquired Qualified Code(s): E03.9 - Hypothyroidism, unspecified Comment/Plan: Continue home meds Case Care Discussed with: Patient, Consultants, Family, Nursing Staff Education/Counseling Given To: Patient Education/Counseling Given Regarding: Diagnosis, Treatment, Prognosis, Follow Up Total Time: 45 ,min Critical Care: No Code: 75765 (12+)
[2016-08-05] MEDS ORDERED: CHAPSTICK LIP BALM TOP PRN (19:13)
[2016-08-05] MEDS: ROSUVASTATIN 10 MG TAB PO SCH (20:14)
[2016-08-06] MEDS: Diltiazem HCl 100 MG in D5W 100 ML IV SCH (01:13)
[2016-08-06] MEDS: PANTOPRAZOLE 40 MG TAB PO SCH (05:36)
--- NOTE | 2016-08-06 07:15 | PCM.CARD ---
- Subjective Reason for visit: Paroxysmally atrial fibrillation Current Assessment: No New Symptoms. negative: Chest Pain, Dizzines, Nausea, Orthopnea, Palpitations, Wheezing Vital Signs: Last Vital Signs Temp 98.1 F 08/06/16 04:00 Pulse 53 L 08/06/16 06:00 Resp 18 08/06/16 04:00 BP 109/56 L 08/06/16 04:00 Pulse Ox 96 08/06/16 04:00 Respiratory: Normal - CTA Jugular Vein Distention: None Pulse Rhythm: Regular EKG Rhythm: Sinus Rhythm (Exercise heart rate 72 beats per minute ambulating in the hallway) EKG Ectopy: negative: Runs >10 beats Heart Sounds: S1 & S2. negative: S3, S4, Murmur (No edema) - Assessment/Plan (1) PAF (paroxysmal atrial fibrillation) Acute I48.0 - PAROXYSMAL ATRIAL FIBRILLATION Present on Admission: Yes Comment/Plan: Stable improved, she is on Multaq and is not having recurrence., I would like to see her resume her low-dose beta-kalpesh, she can check heart rate and blood pressure at home in the morning I will ask her to hold for heart rates less than 55 beats per minute with a total of 25 mg daily. She is anticoagulated and will transition to Eliquis this evening twice daily and my office will call her and I will see her week august in my office. (2) CAD (coronary artery disease) Chronic I25.10 - ATHSCL HEART DISEASE OF [place] CORONARY ARTERY W/O ANG PCTRS [place] artery [place] heart with unspecified angina I25.119 - Atherosclerotic heart disease of [place] coronary artery with unspecified angina pectoris Comment/Plan: Stable continue treatment low-dose beta-kalpesh and statin, would not combined aspirin with Eliquis as an outpatient (3) Hypertensive heart disease Chronic I11.9 - HYPERTENSIVE HEART DISEASE WITHOUT HEART FAILURE Present on Admission: Yes without heart failure I11.9 - Hypertensive heart disease without heart failure Comment/Plan: Stable continue current treatment ARB
[2016-08-06 08:34] VITALS: BP 134/70; TEMP 97.6
--- NOTE | 2016-08-06 09:11 | PCM.PULM ---
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 Her breathing is fair. Denies having chest pain, palpitation, fatigue,cough,dyspnea. Ambulating in hallway Current medication list reviewed:yes Notes reviewed:yes - Physical Examination Vital Signs and I&O: Last Vital Signs Temp 97.6 F 08/06/16 08:32 Pulse 51 L 08/06/16 08:32 Resp 17 08/06/16 08:32 BP 134/70 08/06/16 08:32 Pulse Ox 93 08/06/16 08:32 Oxygen Pulse Oxygen Saturation 93 O2 Device Room Air Oxygen Flow Rate Fraction of Inspired Oxygen ( FIO2) Intake & Output 08/03/16 08/04/16 08/05/16 08/06/16 23:59 23:59 23:59 23:59 Intake Total 480 1248 Output Total 500 2600 800 Balance -20 -1352 -800 Patient's weight 88.541 kg 88.587 kg General: Alert, Oriented x3, No acute distress Respiratory: Normal - CTA, Diminished Cardiovascular: Regular rate, Regular rate and rhythm, Normal S1, No Gallops, Rubs/Murmurs, Normal S2, Good Pedal Pulses (DP pulses 2+ bilaterally) GI: Normal bowel sounds, Soft, Non tender, No hepatospenomegaly, No masses Extremities/Musculoskeletal: Normal pulses Skin: Warm,Dry and Intact, No rashes, No breakdown, No significant lesion Neurological: Normal Steady Gait, Normal speech, Strength at 5/5 X4 ext, Normal tone, Cranial nerves 3-12 NL Psych/Mental Status: Normal Affect Result Diagrams: 08/04/16 01:00 08/04/16 08:10 Lab/DI/Studies Reviewed: EKG: NSR, NO ST or ST wave changes noted Medications: Dronedarone (Multaq) 400 mg PO BID JUANIS Stop: 08/18/16 11:59 Last Admin: 08/04/16 23:26 Dose: 400 mg Nitroglycerin (Ntg (Nitrostat Sublingual Tab)) 0.4 mg SL PRN PRN; Protocol PRN Reason: Chest Pain or Discomfort Stop: 08/17/16 16:59 Acetaminophen (Tylenol Tablet) 650 mg PO Q6H PRN PRN Reason: Mild Pain or Fever Stop: 08/18/16 16:59 Last Admin: 08/04/16 17:52 Dose: 650 mg Aspirin (Aspirin, Chewable) 81 mg PO DAILY JUANIS Stop: 08/18/16 08:59 Last Admin: 08/04/16 12:04 Dose: 81 mg Buspirone HCl (Buspar) 15 mg PO DAILY JUANIS Stop: 08/18/16 08:59 Last Admin: 08/04/16 12:10 Dose: Not Given Atenolol (Tenormin) 25 mg PO DAILY [facility] Stop: 08/20/16 16:59 Morphine Sulfate (Morphine Sulfate) 2 mg IV Q3H PRN PRN Reason: Pain-NPO/PO Med Not Effective Stop: 08/10/16 21:53 [place]-9-Rgbr Ethyl Esters (Lovaza ([place]-3 Acid Ethyl Esters)) 2,000 mg PO BID JUANIS Stop: 08/17/16 22:59 Last Admin: 08/04/16 23:25 Dose: 2,000 mg Pantoprazole Sodium (Protonix) 40 mg PO 0600 JUANIS Stop: 08/18/16 05:59 Last Admin: 08/05/16 06:01 Dose: 40 mg Rosuvastatin Calcium (Crestor) 10 mg PO QHS JUANIS Stop: 08/17/16 22:59 Last Admin: 08/04/16 23:25 Dose: 10 mg Valsartan (Diovan) 80 mg PO DAILY JUANIS Stop: 08/18/16 08:59 Last Admin: 08/04/16 12:05 Dose: 80 mg - Assessment/Plan (1) Abnormal CT scan, chest Acute R93.8 - ABNORMAL FINDINGS ON DIAGNOSTIC IMAGING OF BODY STRUCTURES Comment/Plan: Patient is okay to go home at this time and is going to need a bronchoscopy because of the left lower lobe mass however I would do want the patient to be more stable as far as her cardiac issues are concerned and she may need a PET scan and a pulmonary function test before any procedure can be planned however I would see the patient closely would follow the patient up as an outpatient and do a bronchoscopy within the next few days after her discharge continue other supportive care on this patient (2) Hypoxemia Acute R09.02 - HYPOXEMIA Comment/Plan: Continue oxygen as needed (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
[2016-08-06] MEDS: BUSPIRONE 5 MG TAB PO SCH (09:15)
[2016-08-06] MEDS: VALSARTAN 80 MG TAB PO SCH (09:15)
[2016-08-06] MEDS: VITAMINS, MULTIPLE CAP PO SCH (09:15)
[2016-08-06] MEDS: DRONEDARONE 400 MG TAB PO SCH (09:16)
[2016-08-06] MEDS: SERTRALINE HCL 100 MG TAB PO SCH (09:16)
[2016-08-06] MEDS: LEVOTHYROXINE 137 MCG TABLET PO SCH (09:16)
[2016-08-06] MEDS: CALCIUM CARBONATE + VITAMIN D 500 MG TAB PO SCH (09:16)
[2016-08-06] MEDS: OMEGA-3-ACID ETHYL ESTERS 1000 MG CAP PO SCH (09:16)
--- NOTE | 2016-08-06 09:40 | PCM.DCS92 ---
- Final/Secondary Discharge Diagnosis (1) Chest pain Acute R07.9 - CHEST PAIN, UNSPECIFIED Present on Admission: Yes unspecified R07.9 - Chest pain, unspecified Comment: Ruled out [place] by cardiac enzymes. Stress test negative for ischemia. (2) New onset a-fib Acute I48.91 - UNSPECIFIED ATRIAL FIBRILLATION Present on Admission: Yes Comment: Converted to normal sinus rhythm. Continue Multaq and atenolol as recommended by Cardiology . Continue Eliquis (3) Hypertensive heart disease Chronic I11.9 - HYPERTENSIVE HEART DISEASE WITHOUT HEART FAILURE Present on Admission: Yes without heart failure I11.9 - Hypertensive heart disease without heart failure Comment: Continue meds keep SBP less than 140 (4) GERD (gastroesophageal reflux disease) Chronic K21.9 - GASTRO-ESOPHAGEAL REFLUX DISEASE WITHOUT ESOPHAGITIS without esophagitis K21.9 - Gastro-esophageal reflux disease without esophagitis Comment: Continue PPI (5) Abnormal CT scan, chest Acute R93.8 - ABNORMAL FINDINGS ON DIAGNOSTIC IMAGING OF BODY STRUCTURES Present on Admission: Yes Comment: Seen by Pulmonary, for outpatient bronchoscopy (6) Thrombus of left atrial appendage Ruled-out [id number] - Present on Admission: Yes Comment: Continue anticoagulation. Echocardiogram did not confirm this CT finding (7) Hypothyroidism Chronic E03.9 - HYPOTHYROIDISM, UNSPECIFIED acquired E03.9 - Hypothyroidism, unspecified Comment: Continue home meds Discharge Disposition: Home Discharge Condition: Improved Cognitive Discharge Status: Unimpaired Fuctional Discharge Status: Independent Physician Follow up/Referrals: Deshaun Pino MD [Staff Physician] - One Week Home Medications / New Prescriptions: New Apixaban [Eliquis] 5 mg PO BID #60 tablet Dronedarone Hydrochloride [Multaq] 400 mg PO BID #120 tab Valsartan 80 mg PO DAILY #90 tablet Continue Omeprazole 40 mg PO DAILY Nitroglycerin [Nitrostat] 0.4 mg SL DAILY PRN PRN Reason: Chest Pain Or Discomfort Sertraline HCl [Zoloft] 200 mg PO DAILY [place]-3 Fatty Acids/Fish Oil [Fish Oil 1,000 mg Softgel] 2 cap PO BID Multivitamin [Multiple Vitamins] 1 tab PO DAILY Levothyroxine Sodium [Levoxyl] 137 mcg PO DAILY Rosuvastatin Calcium [Crestor] 10 mg PO QHS Atenolol [Tenormin] 25 mg PO DAILY Buspirone HCl 15 mg PO DAILY Calcium Carbonate/Vitamin D3 [Calcium 600 + Vit D 200 Tablet] 1 each PO BID Discontinued Aspirin [Aspirin, Chewable] 81 mg PO DAILY Valsartan/Hydrochlorothiazide [Valsartan-Hctz 80-12.5 mg Tab] 1 tab PO DAILY O2 Device: Room Air Diet at Discharge: Cardiac, Heart Healthy, Low Salt, High Fiber Activity: As Tolerated Call Office For: Worsening Symptoms, Fever over 101 F Discontinue use of:: Alcohol, All Illegal Substances, All Types of Tobacco - DC Summary Notes Hospital Course Note:: Discharge summary on patient named GIUSEPPE HOWELL admitted to [facility] on 08/04/16 by Matt Melendez MD. Date of discharge is . Patient has initially presented to emergency room on August 03 for evaluation of substernal chest pressure and heaviness and tightness with radiation to back and neck and her jaw bilaterally. Patient is also reported episodes of palpitations feeling dizzy and lightheaded. Please refer the admission for further details. ED workup was undertaken; upon arrival in ED she was found to be in atrial fibrillation with pulse fluctuating between 12 [id number] . Cardizem bolus was given. Initial chest x-ray showed no acute cardio pulmonary disease. CT chest was obtained which showed no PE, cord-like structure in left atrial appendage suspicious for blood clot, and 3.5 x 2.5 hypo attenuating lesion in left hilum. Patient is admitted to telemetry floor. She was seen consultation by Cardiology and cardiac regimen was optimized, she was switched to combination of Multaq and atenolol. During initial part of her stay in the hospital she episodes of breakthrough atrial fibrillation. She was seen consultation by Pulmonary injury regards to left hilar region and outpatient bronchoscopy was recommended. 2D echo was obtained which showed normal LV systolic function with EF greater than 70% and moderate dilatation of left atrium. On August 04 patient has undergone nuclear stress test which showed no reversible ischemia or infarction, normal LV systolic function with EF of 70%, normal LV wall motion. Given new atrial fibrillation and Qasim score patient was anticoagulated initially with full-dose of Lovenox and subsequently was converted to oral Eliquis, there was no bleeding complications related to anti coagulation during hospital stay. Patient activity level was gradually advanced and by the time of the discharge she was able to ambulate freely with no symptoms. Multiple family members were kept abreast on results of testing and clinical progression. Patient required potassium and magnesium supplements and by time of discharge or electrolytes within normal range. During hospital stay patient has remained hemodynamically stable. On August 06 patient was cleared for discharge by Cardiology and in clinically stable improved condition she has been discharged home to the care of the family her PCP. Discharge plan discussed in details with patient and her daughter to PCP and Dr. Pino. Total Time: 40 min . Code: 77315 (>30min.) - Physical Exam Vital Signs: Last Vital Signs Temp 97.6 F 08/06/16 08:32 Pulse 51 L 08/06/16 08:32 Resp 17 08/06/16 08:32 BP 134/70 08/06/16 08:32 Pulse Ox 93 08/06/16 08:32 Oxygen Pulse Oxygen Saturation 93 O2 Device Room Air Oxygen Flow Rate Fraction of Inspired Oxygen ( FIO2) Constitutional: No apparent distress, Alert Oriented to: Time, Person, Place - HEENT Head: Normal (No bruit neck vein distention thyromegaly) Eye: Normal (PERRL, EOMI, Sclera white) Oropharynx: Normal (Pharynx:Moist without exudate,Gums-no swelling) ENT EAC: Normal TMJ: Normal Nose: No Symptoms Reported (septum midline) - Respiratory/Cardiovascular Respiratory: Diminished, Rhonchi. negative: Rales Cardiovascular: Normal, Systolic murmur - GI Auscultation: Normal (Soft nondistended nontender) Palpation: Normal (Soft,No rebound or guarding, non distended) Tenderness: Non tender Rectal Exam: Deferred - Exam Deferred: Yes - Musculoskeletal Back: Normal (Non-Tender) Extremities: Normal (Normal tone, Pulses 2+ No cyanosis or edema, FROM), Femoral Pulse, Pedal Pulse, Radial Pulse. negative: Calf Tenderness, Clubbing, Cyanosis, Edema, Pedal Edema - Integumentary Skin: Normal, Warm, Dry Lymphatics: Normal - Neurologic Memory Impaired: Normal Motor Function: Normal Cranial Nerve: Normal Cerebellar: Normal Mood Description: Normal, Anxious Perception: Normal - Other Exam Other Exam Findings: Allergies No Known Allergies Allergy (Verified 08/03/16 16:42) Last Vital Signs Temp 97.6 F 08/06/16 08:32 Pulse 51 L 08/06/16 08:32 Resp 17 08/06/16 08:32 BP 134/70 08/06/16 08:32 Pulse Ox 93 08/06/16 08:32 08/04/16 01:00 08/04/16 08:10 Discharge Home Medication List Atenolol [Tenormin] 25 mg PO DAILY 10/24/12 [History Confirmed 08/04/16] Levothyroxine Sodium [Levoxyl] 137 mcg PO DAILY 10/24/12 [History Confirmed 03/12] Multivitamin [Multiple Vitamins] 1 tab PO DAILY 10/24/12 [History Confirmed 03/12] Nitroglycerin [Nitrostat] 0.4 mg SL DAILY PRN 10/24/12 [History Confirmed ] [place]-3 Fatty Acids/Fish Oil [Fish Oil 1,000 mg Softgel] 2 cap PO BID 10/24/12 [ History Confirmed 08/04/16] Omeprazole 40 mg PO DAILY 10/24/12 [History Confirmed 08/04/16] Rosuvastatin Calcium [Crestor] 10 mg PO QHS 10/24/12 [History Confirmed 08/04/16 ] Sertraline HCl [Zoloft] 200 mg PO DAILY 10/24/12 [History Confirmed 08/04/16] Buspirone HCl 15 mg PO DAILY 03/11/16 [History Confirmed 08/04/16] Calcium Carbonate/Vitamin D3 [Calcium 600 + Vit D 200 Tablet] 1 each PO BID 02/09 [History Confirmed 08/04/16] Apixaban [Eliquis] 5 mg PO BID #60 tablet 08/06/16 [Rx] Dronedarone Hydrochloride [Multaq] 400 mg PO BID #120 tab 08/06/16 [Rx] Valsartan 80 mg PO DAILY #90 tablet 08/06/16 [Rx] New Discharge Medications (Rx) Apixaban [Eliquis] 5 mg PO BID #60 tablet 08/06/16 [Rx] Dronedarone Hydrochloride [Multaq] 400 mg PO BID #120 tab 08/06/16 [Rx] Valsartan 80 mg PO DAILY #90 tablet 08/06/16 [Rx] Home Medications Atenolol [Tenormin] 25 mg PO DAILY 10/24/12 Levothyroxine Sodium [Levoxyl] 137 mcg PO DAILY 10/24/12 Multivitamin [Multiple Vitamins] 1 tab PO DAILY 10/24/12 Nitroglycerin [Nitrostat] 0.4 mg SL DAILY PRN 10/24/12 [place]-3 Fatty Acids/Fish Oil [Fish Oil 1,000 mg Softgel] 2 cap PO BID 10/24/12 Omeprazole 40 mg PO DAILY 10/24/12 Rosuvastatin Calcium [Crestor] 10 mg PO QHS 10/24/12 Sertraline HCl [Zoloft] 200 mg PO DAILY 10/24/12 Buspirone HCl 15 mg PO DAILY 03/11/16 Calcium Carbonate/Vitamin D3 [Calcium 600 + Vit D 200 Tablet] 1 each PO BID 02/09 Apixaban [Eliquis] 5 mg PO BID #60 tablet 08/06/16 Dronedarone Hydrochloride [Multaq] 400 mg PO BID #120 tab 08/06/16 Valsartan 80 mg PO DAILY #90 tablet 08/06/16
[2016-08-06 10:16] VITALS: PULSE 60
--- NOTE | 2016-08-06 11:01 | CAPUEKG ---
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
--- NOTE | 2016-08-06 11:02 | CAPUEKG ---
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 : Requested By: Order Number: Reading MD: Deshaun Pino MD Measurements Intervals [place] Rate: 113 P: [place]: QRS: -13 QRSD: 108 T: 160 QT: 352 QTc: 482 Interpretive Statements Atrial fibrillation with rapid ventricular response with premature ventricular or aberrantly conducted complexes Moderate voltage criteria for LVH, may be normal variant ST \T\ T wave abnormality, consider lateral ischemia or digitalis effect Abnormal ECG Electronically Signed On 08-06-16 11:02:15 EST by Deshaun Pino MD <[id number]> [id number]
[2016-08-06] MEDS ORDERED: APIXABAN 5 MG TABLET PO SCH (20:00)
[2016-08-07] MEDS ORDERED: ATENOLOL 25 MG TAB PO SCH (09:00)
== END 2016-08-06 11:59 | disposition home or self-care (01) | DRG 310 ==
LOC: ED 16:27 → PCU 19:50 → OBSVTOIN 08-04 12:29
PROVIDERS: ADMIT Internal Medicine; ATTEND Internal Medicine
PROC: 039C3ZZ Drainage of Left Radial Artery, Percutaneous Approach (ICD-10-PCS; principal; 2016-08-04)
DX: I48.0 Paroxysmal atrial fibrillation (principal); I11.9 Hypertensive heart disease without heart failure; K21.9 Gastro-esophageal reflux disease without esophagitis; R93.8 Abnormal findings on diagnostic imaging of other specified body structures; E03.9 Hypothyroidism, unspecified; Z98.61 Coronary angioplasty status; E78.00 Pure hypercholesterolemia, unspecified; J45.909 Unspecified asthma, uncomplicated; M19.90 Unspecified osteoarthritis, unspecified site; F41.8 Other specified anxiety disorders; Z79.82 Long term (current) use of aspirin; Z79.899 Other long term (current) drug therapy; Z87.891 Personal history of nicotine dependence; D38.1 Neoplasm of uncertain behavior of trachea, bronchus and lung; R00.1 Bradycardia, unspecified; R09.02 Hypoxemia; I25.2 Old myocardial infarction; E78.5 Hyperlipidemia, unspecified; I25.119 Atherosclerotic heart disease of native coronary artery with unspecified angina pectoris
CPT/HCPCS: 36415; 36600; 71020; 71275; 78452; 80048; 80053; 80061; 81001; 82550; 82803; 83605; 83735; 83880; 84132; 84436; 84443; 84484; 85025; 85027; 85610; 85730; 87040; 87086; 93005; 93017; 93306; 96361; 96372; 96374; 99284; A4216; A9500; A9698; G0378; J1650; J2785; J3480; J3490; J7060